=== PATIENT | male | born 1975 | race Two or more races ===

== ENCOUNTER 2022-07-29 21:51 | Inpatient (IN) | payer OTHER ==
[~2022-07-29] VITALS: Ht 172.7 cm; Wt 64.6 kg
[2022-07-29 22:40] LABS: MEAN CORPUSCULAR HEMOGLOBIN 26.2 uug (23.8-33.4); MEAN CORPUSCULAR VOLUME 82.6 fL (73.0-96.2); PLATELET COUNT (AUTO) 220 K/uL (152-348)
[2022-07-29 22:51] LABS: ALANINE AMINOTRANSFERASE 23 U/L (16-63); ALKALINE PHOSPHATASE 390 U/L (50-136); ASPARTATE AMINOTRANSFERASE 37 U/L (15-37); BILIRUBIN,DIRECT 0.1 mg/dL (0.0-0.2); BILIRUBIN,TOTAL 0.2 mg/dL (0.2-1.0); CARBON DIOXIDE 29 mmol/L (21-32); CHLORIDE 96 mmol/L (98-107); CREATININE 4.6 mg/dL (0.6-1.3); GLUCOSE 146 mg/dL (74-106); POTASSIUM 4.5 mmol/L (3.5-5.1); TOTAL PROTEIN, SERUM 5.9 g/dL (6.4-8.2); UREA NITROGEN, BLOOD 42 mg/dL (7-18)
[2022-07-29] MEDS ORDERED: AMLO-212 PO (23:14)
[2022-07-29] MEDS ORDERED: CALC667C6 PO (23:15)
[2022-07-29] MEDS ORDERED: CLON0.1T PO (23:16)
[2022-07-29] MEDS ORDERED: FERR-68 PO (23:17)
[2022-07-29] MEDS ORDERED: HYDR-4209 PO (23:23)
[2022-07-29] MEDS ORDERED: LEVO25TA9 PO (23:23)
[2022-07-29] MEDS ORDERED: INSU100V39 SQ (23:25)
[2022-07-30] MEDS ORDERED: ONDANSETRON 4 MG/2 ML VIAL IV PRN (01:15)
[2022-07-30] MEDS ORDERED: REMEDY ESSENTIAL ZINC PASTE 113 GM TP PRN (01:15)
[2022-07-30] MEDS ORDERED: levETIRAcetam IV 500 MG in IV DEXTROSE 5% 100 ML IV ONE (01:15)
[2022-07-30] MEDS ORDERED: ONDANSETRON ODT 4 MG TAB.RAPDIS SL ONE (02:15)
[2022-07-30] MEDS ORDERED: levETIRAcetam 500 MG/5 ML VIAL IV ONE (03:22)
[2022-07-30 04:02] LABS: BASOPHILS % (MANUAL) 0 % (0-2); EOSINOPHILS % (MANUAL) 5 % (0-8); LYMPHOCYTES % (MANUAL) 10 % (20-40); MONOCYTES % (MANUAL) 6 % (2-10); NEUTROPHILS % (MANUAL) 79 % (42-75)
[2022-07-30 06:02] LABS: BILIRUBIN,TOTAL 0.4 mg/dL (0.2-1.0); CREATININE 4.8 mg/dL (0.6-1.3); MAGNESIUM 1.5 mg/dL (1.8-2.4); PHOSPHOROUS 4.5 mg/dL (2.5-4.9); POTASSIUM 4.6 mmol/L (3.5-5.1); TOTAL PROTEIN, SERUM 5.6 g/dL (6.4-8.2)
[2022-07-30 06:14] LABS: MEAN CORPUSCULAR HEMOGLOBIN 27.7 uug (23.8-33.4); MEAN CORPUSCULAR VOLUME 85.1 fL (73.0-96.2); PLATELET COUNT (AUTO) 208 K/uL (152-348)
[2022-07-30 06:51] LABS: HEMATOCRIT 19.9 % (36.7-47.1)
[2022-07-30] MEDS: PANTOPRAZOLE SODIUM 40 MG TABLET.DR PO SCH (07:59)
[2022-07-30] MEDS ORDERED: levETIRAcetam 250 MG TABLET ONE (08:01)
[2022-07-30] MEDS ORDERED: PANTOPRAZOLE SODIUM 40 MG TABLET.DR PO ONE (08:01)
[2022-07-30] MEDS: levETIRAcetam 500 MG TABLET PO SCH ×2 (09:00→20:38)
[2022-07-30] MEDS ORDERED: levETIRAcetam 250 MG TABLET PO SCH (09:00)
[2022-07-30 09:30] VITALS: BP 119/80
[2022-07-30] MEDS: NICOTINE 21 MG/24HR PATCH TD SCH (12:17)
[2022-07-30 12:44] LABS: BAND % (MANUAL) 3 % (0-10); BASOPHILS % (MANUAL) 0 % (0-2); BLASTS, MANUAL % 0 % (0-0); EOSINOPHILS % (MANUAL) 5 % (0-8); LYMPHOCYTES % (MANUAL) 17 % (20-40); METAMYELOCYTES % 0 % (0-1); MONOCYTES % (MANUAL) 4 % (2-10); MYELOCYTES % 0 % (0-0); NEUTROPHILS % (MANUAL) 71 % (42-75); PROMYELOCYTES % 0 %; REACTIVE LYMPHOCYTES 0 % (0-0)
[2022-07-30] MEDS: ACETAMINOPHEN 325 MG TABLET PO PRN (13:45)
[2022-07-30 15:53] LABS: *OCCULT BLOOD STOOL NEGATIVE (NEGATIVE)
[2022-07-30] MEDS ORDERED: MAGNESIUM OXIDE 400 MG TABLET PO ONE (16:00)
[2022-07-30 16:01] VITALS: BP 124/85
[2022-07-30] MEDS ORDERED: CLONIDINE HCL 0.1 MG TABLET PO PRN (19:00)
[2022-07-30 20:00] VITALS: BP 128/87
[2022-07-30] MEDS: HYDROCODONE/APAP 5-325MG TABLET PO PRN (20:48)
[2022-07-31] VITALS (11 sets, daily range): BP systolic 137–151; BP diastolic 96–100
[2022-07-31] MEDS: PANTOPRAZOLE SODIUM 40 MG TABLET.DR PO SCH ×2 (06:04→08:28)
[2022-07-31] MEDS: LEVOTHYROXINE SODIUM 25 MCG TABLET PO SCH ×2 (06:04→08:27)
[2022-07-31 07:59] LABS: HEMATOCRIT 21.2 % (36.7-47.1); PLATELET COUNT (AUTO) 217 K/uL (152-348)
[2022-07-31 08:23] LABS: BILIRUBIN,TOTAL 0.3 mg/dL (0.2-1.0); CREATININE 5.6 mg/dL (0.6-1.3); MAGNESIUM 1.4 mg/dL (1.8-2.4); PHOSPHOROUS 4.2 mg/dL (2.5-4.9); POTASSIUM 6.1 mmol/L (3.5-5.1); TOTAL PROTEIN, SERUM 5.7 g/dL (6.4-8.2)
[2022-07-31] MEDS: CALCIUM ACETATE 667 MG CAP/TAB PO SCH ×3 (08:24→17:51)
[2022-07-31] MEDS: FERROUS SULFATE 325 MG TABEC PO SCH ×2 (08:25→17:51)
[2022-07-31] MEDS: levETIRAcetam 500 MG TABLET PO SCH ×2 (08:25→20:34)
[2022-07-31] MEDS: NICOTINE 21 MG/24HR PATCH TD SCH (08:25)
[2022-07-31] MEDS ORDERED: MAGNESIUM SULFATE/D5W 100 ML IV SCH (12:30)
[2022-08-01] VITALS: BP 139/97
[2022-08-01 04:00] VITALS: BP 140/98
[2022-08-01 06:41] LABS: HEMATOCRIT 24.9 % (36.7-47.1); MEAN CORPUSCULAR HEMOGLOBIN 26.6 uug (23.8-33.4); MEAN CORPUSCULAR VOLUME 82.2 fL (73.0-96.2); PLATELET COUNT (AUTO) 166 K/uL (152-348)
[2022-08-01 07:23] LABS: BILIRUBIN,TOTAL 0.4 mg/dL (0.2-1.0); CREATININE 6.4 mg/dL (0.6-1.3); MAGNESIUM 1.7 mg/dL (1.8-2.4); PHOSPHOROUS 5.4 mg/dL (2.5-4.9); TOTAL PROTEIN, SERUM 5.9 g/dL (6.4-8.2)
[2022-08-01] MEDS: FERROUS SULFATE 325 MG TABEC PO SCH ×2 (08:17→17:02)
[2022-08-01] MEDS: CALCIUM ACETATE 667 MG CAP/TAB PO SCH ×3 (08:17→17:03)
[2022-08-01] MEDS: NICOTINE 21 MG/24HR PATCH TD SCH (08:17)
[2022-08-01] MEDS: levETIRAcetam 500 MG TABLET PO SCH ×2 (08:17→21:22)
[2022-08-01 08:54] LABS: POTASSIUM 6.3 mmol/L (3.5-5.1)
[2022-08-01] MEDS ORDERED: SODIUM POLYSTYRENE SULFONATE 15 G/60 ML LIQUID UDC PO ONE (09:15)
[2022-08-01 11:41] VITALS: BP 143/100
[2022-08-01] MEDS ORDERED: MAGNESIUM OXIDE 400 MG TABLET PO ONE (12:00)
[2022-08-01 15:45] VITALS: BP 124/91
[2022-08-01 20:00] VITALS: BP 131/89
[2022-08-02 04:00] VITALS: BP 140/95
[2022-08-02] MEDS: LEVOTHYROXINE SODIUM 25 MCG TABLET PO SCH (06:24)
[2022-08-02] MEDS: PANTOPRAZOLE SODIUM 40 MG TABLET.DR PO SCH (06:24)
[2022-08-02] MEDS: levETIRAcetam 500 MG TABLET PO SCH ×2 (08:02→21:53)
[2022-08-02] MEDS: NICOTINE 21 MG/24HR PATCH TD SCH (08:02)
[2022-08-02] MEDS: CALCIUM ACETATE 667 MG CAP/TAB PO SCH ×3 (08:02→17:05)
[2022-08-02] MEDS: FERROUS SULFATE 325 MG TABEC PO SCH ×2 (08:02→16:29)
[2022-08-02] MEDS: NEPRO (VANILLA) 237 ML CAN PO SCH (09:07)
[2022-08-02 11:41] VITALS: BP 127/92
[2022-08-02 12:07] LABS: HEPATITIS B SURFACE AG Negative (Negative)
[2022-08-02 16:00] VITALS: BP 114/78
[2022-08-02 20:39] VITALS: BP 130/87
[2022-08-02] MEDS: HYDROCODONE/APAP 5-325MG TABLET PO PRN (21:54)
[2022-08-02] MEDS: MEDIHONEY= THERAHONEY 1.5 OZ TUBE TOP SCH (21:56)
[2022-08-03 03:52] VITALS: BP 138/100
[2022-08-03] MEDS: PANTOPRAZOLE SODIUM 40 MG TABLET.DR PO SCH (06:33)
[2022-08-03] MEDS: LEVOTHYROXINE SODIUM 25 MCG TABLET PO SCH (06:33)
[2022-08-03 07:17] LABS: CREATININE 5.5 mg/dL (0.6-1.3); POTASSIUM 5.9 mmol/L (3.5-5.1)
[2022-08-03 08:56] LABS: HEMATOCRIT 22.6 % (36.7-47.1); MEAN CORPUSCULAR HEMOGLOBIN 26.9 uug (23.8-33.4); MEAN CORPUSCULAR VOLUME 82.8 fL (73.0-96.2); PLATELET COUNT (AUTO) 183 K/uL (152-348)
[2022-08-03] MEDS: NEPRO (VANILLA) 237 ML CAN PO SCH (09:00)
[2022-08-03] MEDS: MEDIHONEY= THERAHONEY 1.5 OZ TUBE TOP SCH ×2 (09:00→23:36)
[2022-08-03] MEDS: NICOTINE 21 MG/24HR PATCH TD SCH (10:06)
[2022-08-03] MEDS: levETIRAcetam 500 MG TABLET PO SCH ×2 (10:06→21:21)
[2022-08-03] MEDS: FERROUS SULFATE 325 MG TABEC PO SCH ×2 (10:06→16:45)
[2022-08-03 11:45] VITALS: BP 132/87
[2022-08-03] MEDS: CALCIUM ACETATE 667 MG CAP/TAB PO SCH ×2 (12:31→16:45)
[2022-08-03] MEDS ORDERED: LEVE500T9 PO (13:59)
[2022-08-03 16:04] VITALS: BP 130/88
[2022-08-03 21:00] VITALS: BP 130/88
[2022-08-04] MEDS: HYDROCODONE/APAP 5-325MG TABLET PO PRN ×2 (05:19→15:25)
[2022-08-04] MEDS: LEVOTHYROXINE SODIUM 25 MCG TABLET PO SCH (06:02)
[2022-08-04] MEDS: PANTOPRAZOLE SODIUM 40 MG TABLET.DR PO SCH (06:02)
[2022-08-04 06:14] VITALS: BP 139/96
[2022-08-04 07:16] LABS: CREATININE 4.5 mg/dL (0.6-1.3); POTASSIUM 5.2 mmol/L (3.5-5.1)
[2022-08-04 08:35] LABS: HEMATOCRIT 22.5 % (36.7-47.1); MEAN CORPUSCULAR HEMOGLOBIN 26.4 uug (23.8-33.4); MEAN CORPUSCULAR VOLUME 82.6 fL (73.0-96.2); PLATELET COUNT (AUTO) 176 K/uL (152-348)
[2022-08-04] MEDS: MEDIHONEY= THERAHONEY 1.5 OZ TUBE TOP SCH ×2 (08:51→21:01)
[2022-08-04] MEDS: FERROUS SULFATE 325 MG TABEC PO SCH ×2 (08:51→18:30)
[2022-08-04] MEDS: levETIRAcetam 500 MG TABLET PO SCH ×2 (08:51→20:59)
[2022-08-04] MEDS: NICOTINE 21 MG/24HR PATCH TD SCH (08:51)
[2022-08-04] MEDS: ACETAMINOPHEN 325 MG TABLET PO PRN (08:51)
[2022-08-04] MEDS: CALCIUM ACETATE 667 MG CAP/TAB PO SCH ×3 (08:55→18:30)
[2022-08-04] MEDS: NEPRO (VANILLA) 237 ML CAN PO SCH (09:00)
[2022-08-04 11:35] VITALS: BP 129/89
[2022-08-04 11:40] VITALS: BP 134/67
[2022-08-04 15:15] VITALS: BP_SYST 117; BP_SYST 129; BP_DIAS 51; BP_DIAS 93
[2022-08-04] MEDS: LORAZEPAM 2 MG/1 ML VIAL IV PRN (21:00)
[2022-08-05 00:03] VITALS: BP 142/100
[2022-08-05 00:16] VITALS: BP 140/100
[2022-08-05 05:14] VITALS: BP 142/101
[2022-08-05] MEDS: PANTOPRAZOLE SODIUM 40 MG TABLET.DR PO SCH (05:46)
[2022-08-05] MEDS: LEVOTHYROXINE SODIUM 25 MCG TABLET PO SCH (05:47)
[2022-08-05 06:47] LABS: CREATININE 5.5 mg/dL (0.6-1.3); POTASSIUM 5.4 mmol/L (3.5-5.1)
[2022-08-05] MEDS: FERROUS SULFATE 325 MG TABEC PO SCH ×2 (08:32→18:29)
[2022-08-05] MEDS: levETIRAcetam 500 MG TABLET PO SCH ×2 (08:32→21:08)
[2022-08-05] MEDS: NICOTINE 21 MG/24HR PATCH TD SCH (08:32)
[2022-08-05] MEDS: MEDIHONEY= THERAHONEY 1.5 OZ TUBE TOP SCH ×2 (09:07→21:08)
[2022-08-05] MEDS: NEPRO (VANILLA) 237 ML CAN PO SCH (09:07)
[2022-08-05] MEDS: CALCIUM ACETATE 667 MG CAP/TAB PO SCH ×3 (09:19→18:29)
[2022-08-05 11:03] VITALS: BP 139/96
[2022-08-05] MEDS: HYDROCODONE/APAP 5-325MG TABLET PO PRN (14:30)
[2022-08-05 15:10] VITALS: BP 143/97
[2022-08-06] MEDS: PANTOPRAZOLE SODIUM 40 MG TABLET.DR PO SCH (05:58)
[2022-08-06] MEDS: LEVOTHYROXINE SODIUM 25 MCG TABLET PO SCH (05:59)
[2022-08-06 07:24] VITALS: BP 156/102
[2022-08-06] MEDS: HYDROCODONE/APAP 5-325MG TABLET PO PRN ×2 (09:36→17:11)
[2022-08-06] MEDS: levETIRAcetam 500 MG TABLET PO SCH ×2 (09:36→20:44)
[2022-08-06] MEDS: FERROUS SULFATE 325 MG TABEC PO SCH ×2 (09:36→17:11)
[2022-08-06] MEDS: CALCIUM ACETATE 667 MG CAP/TAB PO SCH ×3 (09:36→17:11)
[2022-08-06] MEDS: NICOTINE 21 MG/24HR PATCH TD SCH (09:37)
[2022-08-06] MEDS: MEDIHONEY= THERAHONEY 1.5 OZ TUBE TOP SCH ×2 (09:37→21:45)
[2022-08-06] MEDS: NEPRO (VANILLA) 237 ML CAN PO SCH (09:37)
[2022-08-06 15:36] LABS: CREATININE 4.5 mg/dL (0.6-1.3); POTASSIUM 5.3 mmol/L (3.5-5.1)
[2022-08-06 20:00] VITALS: BP 108/70
[2022-08-07] MEDS: LEVOTHYROXINE SODIUM 25 MCG TABLET PO SCH (06:08)
[2022-08-07] MEDS: PANTOPRAZOLE SODIUM 40 MG TABLET.DR PO SCH (06:08)
[2022-08-07 06:35] VITALS: BP 112/72
[2022-08-07 07:49] VITALS: BP 122/48
[2022-08-07] MEDS: CALCIUM ACETATE 667 MG CAP/TAB PO SCH ×3 (08:16→13:16)
[2022-08-07] MEDS: levETIRAcetam 500 MG TABLET PO SCH ×2 (08:16→21:08)
[2022-08-07] MEDS: HYDROCODONE/APAP 5-325MG TABLET PO PRN ×2 (08:16→16:46)
[2022-08-07] MEDS: FERROUS SULFATE 325 MG TABEC PO SCH ×2 (08:16→16:26)
[2022-08-07] MEDS: MEDIHONEY= THERAHONEY 1.5 OZ TUBE TOP SCH ×2 (08:17→21:09)
[2022-08-07] MEDS: NICOTINE 21 MG/24HR PATCH TD SCH (08:17)
[2022-08-07] MEDS: NEPRO (VANILLA) 237 ML CAN PO SCH (08:17)
[2022-08-07 15:45] VITALS: BP 112/76
[2022-08-07 20:58] VITALS: BP 119/75
[2022-08-08 04:24] VITALS: BP 135/84
[2022-08-08] MEDS: PANTOPRAZOLE SODIUM 40 MG TABLET.DR PO SCH (06:37)
[2022-08-08] MEDS: LEVOTHYROXINE SODIUM 25 MCG TABLET PO SCH (06:37)
[2022-08-08 06:41] LABS: HEMATOCRIT 21.1 % (36.7-47.1); MEAN CORPUSCULAR HEMOGLOBIN 26.4 uug (23.8-33.4); MEAN CORPUSCULAR VOLUME 80.8 fL (73.0-96.2); PLATELET COUNT (AUTO) 216 K/uL (152-348)
[2022-08-08 07:15] LABS: CREATININE 6.4 mg/dL (0.6-1.3)
[2022-08-08 07:25] LABS: POTASSIUM 6.3 mmol/L (3.5-5.1)
[2022-08-08] MEDS ORDERED: SODIUM POLYSTYRENE SULFONATE 15 G/60 ML LIQUID UDC PO ONE (08:15)
[2022-08-08] MEDS: NEPRO (VANILLA) 237 ML CAN PO SCH (09:00)
[2022-08-08] MEDS: CALCIUM ACETATE 667 MG CAP/TAB PO SCH ×3 (10:15→18:00)
[2022-08-08] MEDS: NICOTINE 21 MG/24HR PATCH TD SCH (10:16)
[2022-08-08] MEDS: FERROUS SULFATE 325 MG TABEC PO SCH ×2 (10:16→17:00)
[2022-08-08] MEDS: levETIRAcetam 500 MG TABLET PO SCH ×2 (10:16→20:34)
[2022-08-08] MEDS: MEDIHONEY= THERAHONEY 1.5 OZ TUBE TOP SCH ×2 (10:22→20:34)
[2022-08-08 10:40] LABS: BAND % (MANUAL) 1 % (0-10); EOSINOPHILS % (MANUAL) 2 % (0-8); LYMPHOCYTES % (MANUAL) 4 % (20-40); MONOCYTES % (MANUAL) 2 % (2-10); NEUTROPHILS % (MANUAL) 91 % (42-75)
[2022-08-08] MEDS: HYDROCODONE/APAP 5-325MG TABLET PO PRN (10:42)
[2022-08-08 11:00] VITALS: BP 131/87
[2022-08-08 15:06] VITALS: BP 120/74
[2022-08-08] MEDS: ACETAMINOPHEN 325 MG TABLET PO PRN (15:32)
[2022-08-08 18:04] VITALS: BP 114/65
[2022-08-08 18:20] VITALS: BP 112/73
[2022-08-08 20:30] VITALS: BP 100/64
[2022-08-09 04:00] VITALS: BP 142/92
[2022-08-09] MEDS: LEVOTHYROXINE SODIUM 25 MCG TABLET PO SCH (06:03)
[2022-08-09] MEDS: PANTOPRAZOLE SODIUM 40 MG TABLET.DR PO SCH (06:04)
[2022-08-09] MEDS: CALCIUM ACETATE 667 MG CAP/TAB PO SCH ×3 (08:35→17:32)
[2022-08-09] MEDS: NICOTINE 21 MG/24HR PATCH TD SCH (08:36)
[2022-08-09] MEDS: NEPRO (VANILLA) 237 ML CAN PO SCH (08:36)
[2022-08-09] MEDS: FERROUS SULFATE 325 MG TABEC PO SCH ×2 (08:36→17:32)
[2022-08-09] MEDS: levETIRAcetam 500 MG TABLET PO SCH ×2 (08:36→20:45)
[2022-08-09] MEDS: MEDIHONEY= THERAHONEY 1.5 OZ TUBE TOP SCH ×2 (08:36→20:46)
[2022-08-09] MEDS: HYDROCODONE/APAP 5-325MG TABLET PO PRN (08:58)
[2022-08-09 10:49] LABS: MEAN CORPUSCULAR HEMOGLOBIN 26.2 uug (23.8-33.4); MEAN CORPUSCULAR VOLUME 81.1 fL (73.0-96.2); PLATELET COUNT (AUTO) 182 K/uL (152-348)
[2022-08-09 11:23] LABS: CREATININE 4.9 mg/dL (0.6-1.3); POTASSIUM 4.5 mmol/L (3.5-5.1)
[2022-08-09 11:30] LABS: HEMATOCRIT 19.2 % (36.7-47.1)
[2022-08-09] MEDS: ACETAMINOPHEN 325 MG TABLET PO PRN (11:34)
[2022-08-09 11:57] LABS: EOSINOPHILS % (MANUAL) 1 % (0-8); LYMPHOCYTES % (MANUAL) 2 % (20-40); MONOCYTES % (MANUAL) 3 % (2-10); NEUTROPHILS % (MANUAL) 94 % (42-75)
[2022-08-09] MEDS ORDERED: DOSING BY PHARMACY-MD TO SPECIFY MED/ROUTE XX PRN (12:30)
[2022-08-09] MEDS ORDERED: VANCOMYCIN IV 1,000 MG in IV DEXTROSE 5% 250 ML IV ONE (13:00)
[2022-08-09] MEDS ORDERED: levoFLOXacin 500 MG/D5W 500 MG in PREMIXED 1 EACH IV ONE (15:00)
[2022-08-09 15:06] VITALS: BP 118/75
[2022-08-09] MEDS ORDERED: CEFEPIME HCL 1 G in IV DEXTROSE 5% 50 ML IV SCH (21:00)
[2022-08-09 21:46] VITALS: BP 117/87
[2022-08-10] VITALS (11 sets, daily range): BP systolic 113–147; BP diastolic 78–99
[2022-08-10] MEDS ORDERED: diphenhydrAMINE 50 MG CAPSULE PO PRN (02:00)
[2022-08-10] MEDS: HYDROCODONE/APAP 5-325MG TABLET PO PRN (02:44)
[2022-08-10] MEDS: PANTOPRAZOLE SODIUM 40 MG TABLET.DR PO SCH (06:12)
[2022-08-10] MEDS: LEVOTHYROXINE SODIUM 25 MCG TABLET PO SCH (06:12)
[2022-08-10 07:27] LABS: HEMATOCRIT 23.3 % (36.7-47.1); MEAN CORPUSCULAR HEMOGLOBIN 26.5 uug (23.8-33.4); MEAN CORPUSCULAR VOLUME 81.7 fL (73.0-96.2); PLATELET COUNT (AUTO) 184 K/uL (152-348)
[2022-08-10 07:47] LABS: CREATININE 5.5 mg/dL (0.6-1.3); MAGNESIUM 1.6 mg/dL (1.8-2.4); PHOSPHOROUS 5.5 mg/dL (2.5-4.9); POTASSIUM 4.6 mmol/L (3.5-5.1)
[2022-08-10] MEDS ORDERED: VANCOMYCIN IV 500 MG in IV DEXTROSE 5% 100 ML IV PRN ×2 (08:00→18:30)
[2022-08-10] MEDS: NICOTINE 21 MG/24HR PATCH TD SCH (09:14)
[2022-08-10] MEDS: FERROUS SULFATE 325 MG TABEC PO SCH ×2 (09:14→17:31)
[2022-08-10] MEDS: levETIRAcetam 500 MG TABLET PO SCH ×2 (09:14→21:02)
[2022-08-10] MEDS: CALCIUM ACETATE 667 MG CAP/TAB PO SCH ×3 (09:15→17:31)
[2022-08-10] MEDS: NEPRO (VANILLA) 237 ML CAN PO SCH (09:15)
[2022-08-10] MEDS: MEDIHONEY= THERAHONEY 1.5 OZ TUBE TOP SCH ×2 (09:16→21:02)
[2022-08-10] MEDS ORDERED: MAGNESIUM OXIDE 400 MG TABLET PO ONE (11:45)
[2022-08-11 04:00] VITALS: BP 118/75
[2022-08-11] MEDS: LEVOTHYROXINE SODIUM 25 MCG TABLET PO SCH (06:08)
[2022-08-11] MEDS: PANTOPRAZOLE SODIUM 40 MG TABLET.DR PO SCH (06:08)
[2022-08-11 07:14] LABS: HEMATOCRIT 22.2 % (36.7-47.1); MEAN CORPUSCULAR HEMOGLOBIN 27.3 uug (23.8-33.4); MEAN CORPUSCULAR VOLUME 82.7 fL (73.0-96.2); PLATELET COUNT (AUTO) 177 K/uL (152-348)
[2022-08-11 07:31] LABS: CREATININE 4.2 mg/dL (0.6-1.3); MAGNESIUM 1.9 mg/dL (1.8-2.4); PHOSPHOROUS 3.3 mg/dL (2.5-4.9); POTASSIUM 3.9 mmol/L (3.5-5.1)
[2022-08-11 08:48] VITALS: BP 138/88
[2022-08-11] MEDS ORDERED: VANCOMYCIN IV 750 MG in IV DEXTROSE 5% 250 ML IV ONE (09:00)
[2022-08-11 09:16] LABS: *BILIRUBIN,URIN NEGATIVE (NEGATIVE); *CLARITY,URINE CLEAR (CLEAR); *COLOR,URINE YELLOW (YELLOW); *KETONES,URINE NEGATIVE (NEGATIVE); *UROBILINOGEN,URINE 0.2 E.U./dl (NORMAL); LEUKOCYTE ESTERASE ,URINE NEGATIVE (NEGATIVE); NITRITE, URINE NEGATIVE (NEGATIVE); PH,URINE 7.5 (5.0-8.0)
[2022-08-11] MEDS: NICOTINE 21 MG/24HR PATCH TD SCH (09:29)
[2022-08-11] MEDS: FERROUS SULFATE 325 MG TABEC PO SCH ×2 (09:30→17:42)
[2022-08-11] MEDS: CALCIUM ACETATE 667 MG CAP/TAB PO SCH ×3 (09:30→17:42)
[2022-08-11] MEDS: levETIRAcetam 500 MG TABLET PO SCH ×2 (09:30→20:29)
[2022-08-11 09:47] LABS: UGLUCOSE 1+ (NEGATIVE)
[2022-08-11 09:48] LABS: *BLOOD, URINE TRACE (NEGATIVE)
[2022-08-11] MEDS: MEDIHONEY= THERAHONEY 1.5 OZ TUBE TOP SCH ×2 (09:53→20:29)
[2022-08-11] MEDS: NEPRO (VANILLA) 237 ML CAN PO SCH (09:54)
[2022-08-11 09:56] LABS: RBC,URINE 0-3 /HPF (0-3); WBC,URINE NONE SEEN /HPF (0-3)
[2022-08-11 09:57] LABS: BACTERIA,URINE NONE SEEN /HPF (NONE SEEN); CALCIUM CARBONATE CRYSTALS,UR NONE SEEN /HPF (NONE SEEN); CALCIUM OXALATE CRYSTALS,UR NONE SEEN /HPF (NONE SEEN); CALCIUM PHOSPHATE CRYSTALS,UR NONE SEEN /HPF (NONE SEEN); COARSE GRANULAR CASTS,URINE NONE SEEN /LPF; CYSTINE CRYSTALS,URINE NONE SEEN /HPF (NONE SEEN); FATTY CASTS,URINE NONE SEEN /LPF (NONE SEEN); MUCUS,URINE NONE SEEN /LPF (0-FEW); RED BLOOD CELL CASTS,URINE NONE SEEN /LPF (NONE SEEN); SPERM,URINE NONE SEEN /HPF (NONE SEEN); SQUAMOUS EPITHELIAL CELL,UR NONE SEEN /HPF (NONE SEEN); TRICHOMONAS,URINE NONE SEEN /HPF (NONE SEEN); TRIPLE PHOSPHATE CRYSTAL,UR NONE SEEN /HPF (NONE SEEN); TYROSINE CRYSTAL,URINE NONE SEEN /HPF (NONE SEEN); URIC ACID CRYSTALS,URINE NONE SEEN /HPF (NONE SEEN); URINE AMORPHOUS PHOSPHATES NONE SEEN /HPF; URINE AMORPHOUS URATE NONE SEEN /HPF; WAXY CASTS,URINE NONE SEEN /LPF (NONE SEEN); YEAST,URINE NONE SEEN /HPF (NONE SEEN)
[2022-08-11] MEDS ORDERED: LIDOCAINE 1%-EPI 1:100,000 20 ML VIAL IJ PRN (11:15)
[2022-08-11] MEDS: HYDROCODONE/APAP 5-325MG TABLET PO PRN (17:42)
[2022-08-11 20:00] VITALS: BP 134/95
[2022-08-11] MEDS ORDERED: LEVOFLOXACIN/D5W 250 MG in PREMIX 1 EA IV SCH (21:00)
[2022-08-12 04:00] VITALS: BP 131/96
[2022-08-12] MEDS: LEVOTHYROXINE SODIUM 25 MCG TABLET PO SCH (06:03)
[2022-08-12] MEDS: PANTOPRAZOLE SODIUM 40 MG TABLET.DR PO SCH (06:03)
[2022-08-12 07:26] LABS: HEMATOCRIT 23.5 % (36.7-47.1); MEAN CORPUSCULAR HEMOGLOBIN 26.8 uug (23.8-33.4); MEAN CORPUSCULAR VOLUME 81.7 fL (73.0-96.2); PLATELET COUNT (AUTO) 168 K/uL (152-348)
[2022-08-12 08:05] LABS: MAGNESIUM 1.9 mg/dL (1.8-2.4); PHOSPHOROUS 2.9 mg/dL (2.5-4.9)
[2022-08-12] MEDS: CALCIUM ACETATE 667 MG CAP/TAB PO SCH ×3 (08:12→17:14)
[2022-08-12] MEDS: NICOTINE 21 MG/24HR PATCH TD SCH (09:12)
[2022-08-12] MEDS: levETIRAcetam 500 MG TABLET PO SCH ×2 (09:12→20:40)
[2022-08-12] MEDS: FERROUS SULFATE 325 MG TABEC PO SCH ×2 (09:14→16:56)
[2022-08-12] MEDS: NEPRO (VANILLA) 237 ML CAN PO SCH (09:14)
[2022-08-12] MEDS: MEDIHONEY= THERAHONEY 1.5 OZ TUBE TOP SCH ×2 (09:15→20:41)
[2022-08-12 12:16] VITALS: BP 137/100
[2022-08-12 16:16] VITALS: BP 130/95
[2022-08-12 20:57] VITALS: BP 136/97
[2022-08-13 04:15] VITALS: BP 135/96
[2022-08-13] MEDS: HYDROCODONE/APAP 5-325MG TABLET PO PRN ×2 (04:32→21:11)
[2022-08-13] MEDS: PANTOPRAZOLE SODIUM 40 MG TABLET.DR PO SCH (06:04)
[2022-08-13] MEDS: LEVOTHYROXINE SODIUM 25 MCG TABLET PO SCH (06:04)
[2022-08-13 06:28] LABS: MEAN CORPUSCULAR VOLUME 81.3 fL (73.0-96.2); PLATELET COUNT (AUTO) 160 K/uL (152-348)
[2022-08-13 06:41] LABS: CREATININE 5.6 mg/dL (0.6-1.3); MAGNESIUM 1.8 mg/dL (1.8-2.4); PHOSPHOROUS 3.1 mg/dL (2.5-4.9); POTASSIUM 4.6 mmol/L (3.5-5.1)
[2022-08-13] MEDS: NICOTINE 21 MG/24HR PATCH TD SCH (09:41)
[2022-08-13] MEDS: NEPRO (VANILLA) 237 ML CAN PO SCH (09:41)
[2022-08-13] MEDS: FERROUS SULFATE 325 MG TABEC PO SCH ×2 (09:41→17:53)
[2022-08-13] MEDS: levETIRAcetam 500 MG TABLET PO SCH ×2 (09:41→21:06)
[2022-08-13] MEDS: MEDIHONEY= THERAHONEY 1.5 OZ TUBE TOP SCH ×2 (09:42→21:07)
[2022-08-13] MEDS: CALCIUM ACETATE 667 MG CAP/TAB PO SCH ×3 (09:44→17:53)
[2022-08-13 20:22] VITALS: BP 138/98
[2022-08-14 04:14] VITALS: BP 134/102
[2022-08-14] MEDS: LEVOTHYROXINE SODIUM 25 MCG TABLET PO SCH (06:12)
[2022-08-14] MEDS: PANTOPRAZOLE SODIUM 40 MG TABLET.DR PO SCH (06:12)
[2022-08-14 06:33] LABS: HEMATOCRIT 23.8 % (36.7-47.1); MEAN CORPUSCULAR HEMOGLOBIN 26.7 uug (23.8-33.4); MEAN CORPUSCULAR VOLUME 81.6 fL (73.0-96.2); PLATELET COUNT (AUTO) 179 K/uL (152-348)
[2022-08-14 06:55] LABS: CREATININE 6.3 mg/dL (0.6-1.3); PHOSPHOROUS 3.2 mg/dL (2.5-4.9)
[2022-08-14] MEDS: FERROUS SULFATE 325 MG TABEC PO SCH ×2 (08:12→17:01)
[2022-08-14] MEDS: CALCIUM ACETATE 667 MG CAP/TAB PO SCH ×3 (08:13→18:17)
[2022-08-14] MEDS: levETIRAcetam 500 MG TABLET PO SCH ×2 (08:13→21:00)
[2022-08-14] MEDS: NEPRO (VANILLA) 237 ML CAN PO SCH (08:13)
[2022-08-14] MEDS: NICOTINE 21 MG/24HR PATCH TD SCH (08:13)
[2022-08-14] MEDS: MEDIHONEY= THERAHONEY 1.5 OZ TUBE TOP SCH ×2 (08:16→21:10)
[2022-08-14 11:36] VITALS: BP 137/95
[2022-08-14 16:02] VITALS: BP 137/90
[2022-08-14 20:28] VITALS: BP 140/107
[2022-08-14] MEDS ORDERED: VANCOMYCIN IV 750 MG in IV DEXTROSE 5% 250 ML IV ONE (22:00)
[2022-08-15 04:29] VITALS: BP 140/94
[2022-08-15 05:54] LABS: HEMATOCRIT 22.3 % (36.7-47.1); MEAN CORPUSCULAR HEMOGLOBIN 26.9 uug (23.8-33.4); MEAN CORPUSCULAR VOLUME 81.1 fL (73.0-96.2); PLATELET COUNT (AUTO) 178 K/uL (152-348)
[2022-08-15] MEDS: PANTOPRAZOLE SODIUM 40 MG TABLET.DR PO SCH (06:10)
[2022-08-15] MEDS: LEVOTHYROXINE SODIUM 25 MCG TABLET PO SCH (06:10)
[2022-08-15 07:24] LABS: CREATININE 3.9 mg/dL (0.6-1.3); MAGNESIUM 1.8 mg/dL (1.8-2.4); PHOSPHOROUS 2.4 mg/dL (2.5-4.9); POTASSIUM 3.8 mmol/L (3.5-5.1)
[2022-08-15] MEDS: NICOTINE 21 MG/24HR PATCH TD SCH (08:44)
[2022-08-15] MEDS: CALCIUM ACETATE 667 MG CAP/TAB PO SCH ×3 (08:44→17:06)
[2022-08-15] MEDS: levETIRAcetam 500 MG TABLET PO SCH ×2 (08:44→20:17)
[2022-08-15] MEDS: FERROUS SULFATE 325 MG TABEC PO SCH ×2 (08:44→17:05)
[2022-08-15] MEDS: NEPRO (VANILLA) 237 ML CAN PO SCH (08:47)
[2022-08-15] MEDS: MEDIHONEY= THERAHONEY 1.5 OZ TUBE TOP SCH ×2 (08:48→20:17)
[2022-08-15 11:42] VITALS: BP 133/99
[2022-08-15 15:27] VITALS: BP 146/105
[2022-08-15] MEDS: HYDROCODONE/APAP 5-325MG TABLET PO PRN (17:06)
[2022-08-15 20:07] VITALS: BP 144/107
[2022-08-16] VITALS (7 sets, daily range): BP systolic 105–160; BP diastolic 46–110
[2022-08-16] MEDS: PANTOPRAZOLE SODIUM 40 MG TABLET.DR PO SCH (06:04)
[2022-08-16] MEDS: LEVOTHYROXINE SODIUM 25 MCG TABLET PO SCH (06:04)
[2022-08-16 06:37] LABS: MEAN CORPUSCULAR HEMOGLOBIN 26.9 uug (23.8-33.4); MEAN CORPUSCULAR VOLUME 81.8 fL (73.0-96.2); PLATELET COUNT (AUTO) 189 K/uL (152-348)
[2022-08-16 06:39] LABS: CREATININE 5.5 mg/dL (0.6-1.3); MAGNESIUM 1.8 mg/dL (1.8-2.4); PHOSPHOROUS 3.2 mg/dL (2.5-4.9); POTASSIUM 5.5 mmol/L (3.5-5.1)
[2022-08-16] MEDS: NICOTINE 21 MG/24HR PATCH TD SCH (09:02)
[2022-08-16] MEDS: FERROUS SULFATE 325 MG TABEC PO SCH ×2 (09:02→16:16)
[2022-08-16] MEDS: CALCIUM ACETATE 667 MG CAP/TAB PO SCH ×3 (09:02→17:42)
[2022-08-16] MEDS: levETIRAcetam 500 MG TABLET PO SCH ×2 (09:02→20:12)
[2022-08-16] MEDS: NEPRO (VANILLA) 237 ML CAN PO SCH (09:29)
[2022-08-16] MEDS: MEDIHONEY= THERAHONEY 1.5 OZ TUBE TOP SCH ×2 (09:29→20:12)
[2022-08-16 21:16] LABS: HEMATOCRIT 28.3 % (36.7-47.1)
[2022-08-17 04:00] VITALS: BP 147/107
[2022-08-17] MEDS: PANTOPRAZOLE SODIUM 40 MG TABLET.DR PO SCH (06:15)
[2022-08-17] MEDS: LEVOTHYROXINE SODIUM 25 MCG TABLET PO SCH (06:15)
[2022-08-17 06:31] LABS: HEMATOCRIT 24.3 % (36.7-47.1); MEAN CORPUSCULAR HEMOGLOBIN 27.2 uug (23.8-33.4); MEAN CORPUSCULAR VOLUME 82.4 fL (73.0-96.2); PLATELET COUNT (AUTO) 167 K/uL (152-348)
[2022-08-17 06:49] LABS: CREATININE 4.6 mg/dL (0.6-1.3); MAGNESIUM 1.9 mg/dL (1.8-2.4); PHOSPHOROUS 2.1 mg/dL (2.5-4.9); POTASSIUM 4.7 mmol/L (3.5-5.1)
[2022-08-17 08:00] VITALS: BP 132/100
[2022-08-17] MEDS: CALCIUM ACETATE 667 MG CAP/TAB PO SCH ×3 (08:00→17:08)
[2022-08-17] MEDS: levETIRAcetam 500 MG TABLET PO SCH ×2 (09:00→20:04)
[2022-08-17] MEDS: NEPRO (VANILLA) 237 ML CAN PO SCH (09:00)
[2022-08-17] MEDS: FERROUS SULFATE 325 MG TABEC PO SCH ×2 (09:00→16:27)
[2022-08-17] MEDS ORDERED: HEPARIN SODIUM,PORCINE 1,000 UNITS/ML VIAL ONE ×5 (09:02→10:00)
[2022-08-17] MEDS ORDERED: LIDOCAINE HCL 1% 20 ML VIAL ONE (09:02)
[2022-08-17] MEDS ORDERED: HEPARIN/NS 500 ML ONE (09:02)
[2022-08-17] MEDS: NICOTINE 21 MG/24HR PATCH TD SCH (09:09)
[2022-08-17] MEDS: MEDIHONEY= THERAHONEY 1.5 OZ TUBE TOP SCH ×2 (09:10→20:59)
[2022-08-17] MEDS ORDERED: FENTANYL CITRATE 100 MCG/2 ML AMPUL ONE (09:51)
[2022-08-17] MEDS ORDERED: MIDAZOLAM HCL 2 MG/2 ML VIAL ONE (09:51)
[2022-08-17] MEDS ORDERED: LIDOCAINE-MPF 2% 5 ML VIAL ONE (10:00)
[2022-08-17 16:00] VITALS: BP 157/109
[2022-08-17] MEDS ORDERED: NEUTRA PHOS PACKET PO ONE (16:00)
[2022-08-17 19:36] VITALS: BP 158/114
[2022-08-17] MEDS: HYDROCODONE/APAP 5-325MG TABLET PO PRN (20:58)
[2022-08-18 04:03] VITALS: BP 159/100
[2022-08-18] MEDS: PANTOPRAZOLE SODIUM 40 MG TABLET.DR PO SCH (06:01)
[2022-08-18] MEDS: LEVOTHYROXINE SODIUM 25 MCG TABLET PO SCH (06:01)
[2022-08-18 07:05] LABS: HEMATOCRIT 24.1 % (36.7-47.1); MEAN CORPUSCULAR HEMOGLOBIN 27.6 uug (23.8-33.4); MEAN CORPUSCULAR VOLUME 83.4 fL (73.0-96.2); PLATELET COUNT (AUTO) 159 K/uL (152-348)
[2022-08-18 07:32] LABS: CREATININE 5.4 mg/dL (0.6-1.3); MAGNESIUM 1.8 mg/dL (1.8-2.4); PHOSPHOROUS 3.1 mg/dL (2.5-4.9); POTASSIUM 5.7 mmol/L (3.5-5.1)
[2022-08-18 08:06] LABS: HEPATITIS B SURFACE AG Negative (Negative)
[2022-08-18] MEDS: NICOTINE 21 MG/24HR PATCH TD SCH (08:44)
[2022-08-18] MEDS: levETIRAcetam 500 MG TABLET PO SCH ×2 (08:44→20:01)
[2022-08-18] MEDS: CALCIUM ACETATE 667 MG CAP/TAB PO SCH ×3 (08:44→17:37)
[2022-08-18] MEDS: FERROUS SULFATE 325 MG TABEC PO SCH ×2 (08:44→17:37)
[2022-08-18] MEDS: NEPRO (VANILLA) 237 ML CAN PO SCH (08:44)
[2022-08-18] MEDS: MEDIHONEY= THERAHONEY 1.5 OZ TUBE TOP SCH ×2 (08:45→20:32)
[2022-08-18 12:00] VITALS: BP 159/101
[2022-08-18] MEDS ORDERED: VANCOMYCIN IV 750 MG in IV DEXTROSE 5% 250 ML IV ONE (14:00)
[2022-08-18] MEDS: HYDROCODONE/APAP 5-325MG TABLET PO PRN (14:34)
[2022-08-18 16:00] VITALS: BP 166/116
[2022-08-18 20:00] VITALS: BP 154/112
[2022-08-19 04:00] VITALS: BP 149/107
[2022-08-19] MEDS: PANTOPRAZOLE SODIUM 40 MG TABLET.DR PO SCH (06:02)
[2022-08-19] MEDS: LEVOTHYROXINE SODIUM 25 MCG TABLET PO SCH (06:03)
[2022-08-19 08:00] VITALS: BP 139/93
[2022-08-19] MEDS: LORAZEPAM 2 MG/1 ML VIAL IV PRN ×2 (08:06→21:17)
[2022-08-19 08:10] LABS: HEMATOCRIT 24.7 % (36.7-47.1); MEAN CORPUSCULAR HEMOGLOBIN 27.3 uug (23.8-33.4); MEAN CORPUSCULAR VOLUME 83.1 fL (73.0-96.2); PLATELET COUNT (AUTO) 151 K/uL (152-348)
[2022-08-19] MEDS: FERROUS SULFATE 325 MG TABEC PO SCH ×2 (08:23→17:07)
[2022-08-19] MEDS: CALCIUM ACETATE 667 MG CAP/TAB PO SCH ×3 (08:23→17:07)
[2022-08-19] MEDS: levETIRAcetam 500 MG TABLET PO SCH ×2 (08:23→20:34)
[2022-08-19] MEDS: NICOTINE 21 MG/24HR PATCH TD SCH (08:24)
[2022-08-19] MEDS: MEDIHONEY= THERAHONEY 1.5 OZ TUBE TOP SCH ×2 (08:24→20:36)
[2022-08-19 08:30] LABS: CREATININE 6.3 mg/dL (0.6-1.3); MAGNESIUM 1.5 mg/dL (1.8-2.4); PHOSPHOROUS 3.4 mg/dL (2.5-4.9)
[2022-08-19 08:45] LABS: POTASSIUM 6.5 mmol/L (3.5-5.1)
[2022-08-19] MEDS ORDERED: MAGNESIUM OXIDE 400 MG TABLET PO ONE (09:30)
[2022-08-19] MEDS ORDERED: SODIUM POLYSTYRENE SULFONATE 15 G/60 ML LIQUID UDC PO ONE (10:00)
[2022-08-19 11:40] VITALS: BP 144/102
[2022-08-19 15:49] VITALS: BP 144/107
[2022-08-19 20:35] VITALS: BP 143/100
[2022-08-20 04:10] VITALS: BP 150/103
[2022-08-20 06:23] LABS: HEMATOCRIT 23.5 % (36.7-47.1); MEAN CORPUSCULAR HEMOGLOBIN 26.9 uug (23.8-33.4); MEAN CORPUSCULAR VOLUME 83.3 fL (73.0-96.2); PLATELET COUNT (AUTO) 157 K/uL (152-348)
[2022-08-20] MEDS: LEVOTHYROXINE SODIUM 25 MCG TABLET PO SCH (06:27)
[2022-08-20] MEDS: PANTOPRAZOLE SODIUM 40 MG TABLET.DR PO SCH (06:27)
[2022-08-20 06:43] LABS: CREATININE 6.6 mg/dL (0.6-1.3); MAGNESIUM 1.7 mg/dL (1.8-2.4); PHOSPHOROUS 3.5 mg/dL (2.5-4.9); POTASSIUM 5.9 mmol/L (3.5-5.1)
[2022-08-20] MEDS: FERROUS SULFATE 325 MG TABEC PO SCH (08:24)
[2022-08-20] MEDS: CALCIUM ACETATE 667 MG CAP/TAB PO SCH ×2 (08:24→13:41)
[2022-08-20] MEDS: NICOTINE 21 MG/24HR PATCH TD SCH (08:24)
[2022-08-20] MEDS: levETIRAcetam 500 MG TABLET PO SCH (08:24)
[2022-08-20] MEDS: MEDIHONEY= THERAHONEY 1.5 OZ TUBE TOP SCH (09:27)
[2022-08-20] MEDS ORDERED: MAGNESIUM OXIDE 400 MG TABLET PO ONE (09:30)
[2022-08-20] MEDS: CLONAZEPAM 0.5 MG TABLET PO SCH ×2 (09:38→13:41)
[2022-08-20] MEDS ORDERED: CLON0.5T PO (09:54)
[2022-08-20 11:46] VITALS: BP 161/102
== END 2022-08-20 16:30 | DRG 53 ==
LOC: ER 21:51 → TRANSITION 07-30 02:50 → TELE3 07-30 08:50 → MEDSURG3 08-01 09:20 → MED 08-02 19:12 → MEDSURG3 08-06 17:55
PROVIDERS: ADMIT Internal Medicine; ATTEND Internal Medicine
PROC: 30233N1 Transfusion of Nonautologous Red Blood Cells into Peripheral Vein, Percutaneous Approach (ICD-10-PCS; principal; 2022-07-30)
PROC: 5A1D70Z Performance of Urinary Filtration, Intermittent, Less than 6 Hours Per Day (ICD-10-PCS; principal; 2022-07-30)
PROC: 0JBP0ZZ Excision of Left Lower Leg Subcutaneous Tissue and Fascia, Open Approach (ICD-10-PCS; 2022-08-02)
PROC: 0JBQ0ZZ Excision of Right Foot Subcutaneous Tissue and Fascia, Open Approach (ICD-10-PCS; 2022-08-02)
PROC: 02PYX3Z Removal of Infusion Device from Great Vessel, External Approach (ICD-10-PCS; 2022-08-11)
PROC: B54BZZA Ultrasonography of Right Lower Extremity Veins, Guidance (ICD-10-PCS; 2022-08-14)
PROC: 06HM33Z Insertion of Infusion Device into Right Femoral Vein, Percutaneous Approach (ICD-10-PCS; 2022-08-14)
PROC: 0JHD3XZ Insertion of Tunneled Vascular Access Device into Right Upper Arm Subcutaneous Tissue and Fascia, Percutaneous Approach (ICD-10-PCS; 2022-08-17)
PROC: 02H633Z Insertion of Infusion Device into Right Atrium, Percutaneous Approach (ICD-10-PCS; 2022-08-17)
PROC: B518ZZA Fluoroscopy of Superior Vena Cava, Guidance (ICD-10-PCS; 2022-08-17)
DX: R56.9 Unspecified convulsions (principal); A41.9 Sepsis, unspecified organism; T80.211A Bloodstream infection due to central venous catheter, initial encounter; E44.0 Moderate protein-calorie malnutrition; R64 Cachexia; D63.8 Anemia in other chronic diseases classified elsewhere; E87.1 Hypo-osmolality and hyponatremia; E88.09 Other disorders of plasma-protein metabolism, not elsewhere classified; I12.0 Hypertensive chronic kidney disease with stage 5 chronic kidney disease or end stage renal disease; N18.6 End stage renal disease; L97.519 Non-pressure chronic ulcer of other part of right foot with unspecified severity; E11.22 Type 2 diabetes mellitus with diabetic chronic kidney disease; S71.101A Unspecified open wound, right thigh, initial encounter; Z99.2 Dependence on renal dialysis; S71.102A Unspecified open wound, left thigh, initial encounter; X58.XXXA Exposure to other specified factors, initial encounter; E03.9 Hypothyroidism, unspecified; E11.621 Type 2 diabetes mellitus with foot ulcer; E83.42 Hypomagnesemia; E87.5 Hyperkalemia; F17.210 Nicotine dependence, cigarettes, uncomplicated; Z79.4 Long term (current) use of insulin; Z88.0 Allergy status to penicillin; R53.1 Weakness; Z68.21 Body mass index [BMI] 21.0-21.9, adult; N25.0 Renal osteodystrophy; M62.50 Muscle wasting and atrophy, not elsewhere classified, unspecified site; L97.518 Non-pressure chronic ulcer of other part of right foot with other specified severity; E11.622 Type 2 diabetes mellitus with other skin ulcer; L97.828 Non-pressure chronic ulcer of other part of left lower leg with other specified severity; Y84.8 Other medical procedures as the cause of abnormal reaction of the patient, or of later complication, without mention of misadventure at the time of the procedure; Y92.128 Other place in nursing home as the place of occurrence of the external cause
CPT/HCPCS: 36415; 70030-TC; 70450; 71045; 76870; 83735; 84100; 84132; 84484; 85018; 85025; 86704; 86705; 86706; 86803; 86850; 86900; 86901; 86920; 87040; 87340; 90937; 93005; A4649; A6213; G0378; G0480; J1644; J1953; J1956; J2060; J2250; J3010; J3370; J3475; J3490; J7040; J7050; J7060; P9016

== ENCOUNTER 2022-08-22 11:48 | Inpatient (IN) | payer OTHER ==
[~2022-08-22] VITALS: Ht 185.4 cm; Wt 79.9 kg
[~2022-08-22 11:48] MED LIST: AMLO-212 PO; CALC667C6 PO; CLON0.1T PO; CLON0.5T PO; FERR-68 PO; HYDR-4209 PO; INSU100V39 SQ; LEVE500T9 PO; LEVO25TA9 PO
[2022-08-22] MEDS ORDERED: ONDANSETRON 4 MG/2 ML VIAL IV ONE (12:30)
[2022-08-22] MEDS ORDERED: IV NORMAL SALINE 500 ML BAG IV ONE (12:30)
[2022-08-22] MEDS ORDERED: MORPHINE SULFATE 4 MG/1 ML DISP.SYRIN IV ONE (12:30)
--- NOTE | 2022-08-22 12:40 | NUR ---
COVID swab collected and sent to LAB.
[2022-08-22] MEDS ORDERED: MORPHINE SULFATE 4 MG/1 ML DISP.SYRIN ONE (12:44)
[2022-08-22] MEDS ORDERED: ONDANSETRON 4 MG/2 ML VIAL ONE (12:44)
[2022-08-22 12:49] LABS: HEMATOCRIT 21.1 % (36.7-47.1); MEAN CORPUSCULAR HEMOGLOBIN 27.4 uug (23.8-33.4); MEAN CORPUSCULAR VOLUME 83.4 fL (73.0-96.2); PLATELET COUNT (AUTO) 151 K/uL (152-348)
[2022-08-22 13:09] LABS: BILIRUBIN,DIRECT 0.1 mg/dL (0.0-0.2); BILIRUBIN,TOTAL 0.4 mg/dL (0.2-1.0); CREATININE 6.9 mg/dL (0.6-1.3); POTASSIUM 5.8 mmol/L (3.5-5.1); TOTAL PROTEIN, SERUM 5.4 g/dL (6.4-8.2)
--- NOTE | 2022-08-22 13:19 | NUR ---
lab reports of hgb 6.9 notified results received by brand marketing intern.
--- NOTE | 2022-08-22 13:25 | NUR ---
Returned from CT, pain decreased, see pain assessment. Blood glucose checked 101, pt given lunch. urine sample collected, voided 400cc ferrari urine. NS IVF infusing. Obtained consent for Blood transfusion.
[2022-08-22] MEDS ORDERED: HYDR-894 PO (13:38)
[2022-08-22] MEDS ORDERED: LEVE100S PO (13:38)
[2022-08-22] MEDS ORDERED: INSULIN REGULAR, HUMAN 300 UNITS/3 ML VIAL SQ PRN (13:45)
[2022-08-22] MEDS ORDERED: LABETALOL HCL 100 MG/20 ML VIAL IV PRN (13:45)
[2022-08-22] MEDS ORDERED: ONDANSETRON 4 MG/2 ML VIAL IV PRN (13:45)
[2022-08-22] MEDS ORDERED: ACETAMINOPHEN 325 MG TABLET PO PRN (13:45)
[2022-08-22] MEDS ORDERED: INSULIN REGULAR, HUMAN 300 UNIT/3 ML VIAL SQ PRN (13:45)
[2022-08-22] MEDS ORDERED: hydrALAZINE HCL 20 MG/1 ML VIAL IV PRN (13:45)
[2022-08-22] MEDS ORDERED: DEXTROSE 50% 50 ML DISP.SYRIN IV PRN (13:45)
[2022-08-22 14:28] LABS: *BILIRUBIN,URIN NEGATIVE (NEGATIVE); *CLARITY,URINE CLEAR (CLEAR); *COLOR,URINE YELLOW (YELLOW); *KETONES,URINE NEGATIVE (NEGATIVE); *UROBILINOGEN,URINE 0.2 E.U./dl (NORMAL); LEUKOCYTE ESTERASE ,URINE NEGATIVE (NEGATIVE); NITRITE, URINE NEGATIVE (NEGATIVE); PH,URINE 7.5 (5.0-8.0); UGLUCOSE 1+ (NEGATIVE)
[2022-08-22 14:30] LABS: *BLOOD, URINE TRACE (NEGATIVE)
[2022-08-22 15:02] LABS: BACTERIA,URINE NONE SEEN /HPF (NONE SEEN); RBC,URINE 0-3 /HPF (0-3); SQUAMOUS EPITHELIAL CELL,UR FEW /HPF (NONE SEEN); WBC,URINE 0-3 /HPF (0-3)
[2022-08-22 15:06] LABS: EOSINOPHILS % (MANUAL) 5 % (0-8); LYMPHOCYTES % (MANUAL) 16 % (20-40); MONOCYTES % (MANUAL) 7 % (2-10); NEUTROPHILS % (MANUAL) 72 % (42-75)
--- NOTE | 2022-08-22 15:30 | NUR ---
VSS, pain decreased. cleared for discharge to med-surg. Report called to Brooklynn CABRERA
[2022-08-22 15:40] VITALS: BP 140/94
[2022-08-22] MEDS: BLOOD SUGAR DIAGNOSTIC 1 EACH STRIP VI SCH ×2 (16:30→21:10)
[2022-08-22] MEDS: AMLODIPINE 5 MG TABLET PO SCH (17:55)
[2022-08-22] MEDS: CALCIUM ACETATE 667 MG CAP/TAB PO SCH (17:55)
[2022-08-22] MEDS: CLONAZEPAM 0.5 MG TABLET PO SCH (17:56)
[2022-08-22] MEDS: DOCUSATE SODIUM 100 MG CAPSULE PO SCH (17:56)
[2022-08-22 19:02] VITALS: BP 132/91
[2022-08-22 19:21] VITALS: BP 132/92
--- NOTE | 2022-08-22 19:24 | NUR ---
1400-Admitted patient from ER dept. with Dx: missed dialysis, ESRD HD dependent and anemia. Body check done with multiple scattered wounds to left and right legs. Treatment done and pictures updated; Patient rec'd HD today and a 1 unit PRBC transfusion with dialysis. 1700-Scheduled medications administered, no ASE noted. Interventions/assessements initiated. Endorsed to incoming relieving RN.
[2022-08-22 19:50] VITALS: BP 132/92
[2022-08-22] MEDS: levETIRAcetam 500 MG/5 ML LIQUID UDC PO SCH (20:47)
[2022-08-22] MEDS: HEPARIN SODIUM,PORCINE 5,000 UNITS/ML VIAL SQ SCH (21:00)
--- NOTE | 2022-08-22 22:00 | NUR ---
RECEIVED REPORT FROM RN. PATIENT IS A/O X4. JUST FINISHED HS TAKEN 2.5L OUT AND PATIENT RECEIVED 1 UNIT OF PRBC WITH HD INFUSION. HEPARIN SQ HELD AT THIS TIME. MD AWARE. PATIENT DENIES ANY PAIN OR DISCOMFORT AT THIS TIME. CALL LIGHT IN REACH. ALL NEEDS ATTENDED. WILL CONTINUE TO MONITOR AND ASSESS.
[2022-08-23 00:14] VITALS: BP 137/96
[2022-08-23 04:35] VITALS: BP 138/94
[2022-08-23] MEDS: LEVOTHYROXINE SODIUM 25 MCG TABLET PO SCH (06:09)
[2022-08-23] MEDS: BLOOD SUGAR DIAGNOSTIC 1 EACH STRIP VI SCH ×4 (06:32→20:14)
[2022-08-23] MEDS: MORPHINE SULFATE 2 MG/1 ML DISP.SYRIN IVP PRN ×3 (06:35→20:39)
[2022-08-23 06:40] LABS: HEMATOCRIT 23.9 % (36.7-47.1); MEAN CORPUSCULAR HEMOGLOBIN 28.3 uug (23.8-33.4); MEAN CORPUSCULAR VOLUME 84.6 fL (73.0-96.2); PLATELET COUNT (AUTO) 155 K/uL (152-348)
[2022-08-23 07:16] LABS: BILIRUBIN,TOTAL 0.4 mg/dL (0.2-1.0); CREATININE 4.9 mg/dL (0.6-1.3); PHOSPHOROUS 3.3 mg/dL (2.5-4.9); POTASSIUM 4.9 mmol/L (3.5-5.1); TOTAL PROTEIN, SERUM 5.4 g/dL (6.4-8.2)
[2022-08-23] MEDS: DOCUSATE SODIUM 100 MG CAPSULE PO SCH ×2 (08:34→16:26)
[2022-08-23] MEDS: CLONAZEPAM 0.5 MG TABLET PO SCH ×3 (08:34→16:27)
[2022-08-23] MEDS: CALCIUM ACETATE 667 MG CAP/TAB PO SCH ×3 (08:34→16:26)
[2022-08-23] MEDS: HEPARIN SODIUM,PORCINE 5,000 UNITS/ML VIAL SQ SCH ×2 (08:38→20:14)
[2022-08-23] MEDS: AMLODIPINE 5 MG TABLET PO SCH (08:41)
[2022-08-23] MEDS: levETIRAcetam 500 MG/5 ML LIQUID UDC PO SCH (08:41)
--- NOTE | 2022-08-23 10:00 | NUR ---
Wound care nurse here to see patient. Awaiting for further eval from dr Finn. PT is in no acute distress. Pt awake and alert x 4.
--- NOTE | 2022-08-23 11:40 | NUR ---
WOUND CARE CONSULT: PT PRESENTS WITH LARGE OPEN AREAS TO THIGHS AND LOWER LEGS, PRESENT ON ADMISSION. DR QUINN AND DR JACOBSON CALLED FOR SURGICAL AND DPM CONSULTS. LEGS ARE WRAPPED WITH XEROFORM DRESSING AND COVERED WITH ABD PADS AND KERLIX. DISCUSSED SKIN PROTECTION WITH NURSING STAFF. SACRAL AREA IS BONY. MD IN AGREEMENT WITH PLAN OF CARE.
[2022-08-23 11:44] VITALS: BP 137/94
--- NOTE | 2022-08-23 12:00 | NUR ---
manager utility notified pt requesting a different placement. Pt states "that [facility] suck". Pts MoM spoke with casemanagement as well for pt's request.
[2022-08-23 16:00] VITALS: BP 145/99
--- NOTE | 2022-08-23 19:30 | NUR ---
Received patient lying in bed. AAOX4. In no acute distress. No complain of pain or SOB at this time. Stated he did not get his dinner, snacks provided. Sinus tachy on tele with HR of 101/min. Dialysis cath on right upper chest area with dressing intact. IV site on right hand intact and patent. Needs assessed and attended to. Safety measure initiated and and call light within reached.
[2022-08-23 20:00] VITALS: BP 134/93
[2022-08-23] MEDS: levETIRAcetam 500 MG TABLET PO SCH (20:14)
[2022-08-24] VITALS: BP 140/89
[2022-08-24] MEDS: MORPHINE SULFATE 2 MG/1 ML DISP.SYRIN IVP PRN ×3 (03:35→15:02)
[2022-08-24 04:00] VITALS: BP 129/90
--- NOTE | 2022-08-24 05:53 | NUR ---
Morphine 2mg via IV given for gen. pain and effective. Other needs attended to and met. NSR on tele with HR of 86/min. Safety measure maintained and call light within reached.
[2022-08-24] MEDS: LEVOTHYROXINE SODIUM 25 MCG TABLET PO SCH (06:11)
[2022-08-24 06:33] LABS: HEMATOCRIT 24.9 % (36.7-47.1); MEAN CORPUSCULAR HEMOGLOBIN 27.9 uug (23.8-33.4); PLATELET COUNT (AUTO) 170 K/uL (152-348)
[2022-08-24] MEDS: BLOOD SUGAR DIAGNOSTIC 1 EACH STRIP VI SCH ×3 (06:36→16:24)
[2022-08-24 06:51] LABS: CREATININE 4.4 mg/dL (0.6-1.3); MAGNESIUM 1.6 mg/dL (1.8-2.4); PHOSPHOROUS 2.9 mg/dL (2.5-4.9); POTASSIUM 4.6 mmol/L (3.5-5.1)
--- NOTE | 2022-08-24 08:00 | NUR ---
AWAKE ALERT AND ORIENTED X3, NO SS OF DISTRESS. CONTINUE WITH PAIN MANAGEMENT. SR ON MONITOR
[2022-08-24] MEDS: levETIRAcetam 500 MG TABLET PO SCH (08:42)
[2022-08-24] MEDS: DOCUSATE SODIUM 100 MG CAPSULE PO SCH ×2 (08:42→17:13)
[2022-08-24] MEDS: CLONAZEPAM 0.5 MG TABLET PO SCH ×3 (08:43→17:13)
[2022-08-24] MEDS: CALCIUM ACETATE 667 MG CAP/TAB PO SCH ×3 (08:43→17:13)
[2022-08-24] MEDS: AMLODIPINE 5 MG TABLET PO SCH (08:43)
[2022-08-24] MEDS: HEPARIN SODIUM,PORCINE 5,000 UNITS/ML VIAL SQ SCH (08:44)
[2022-08-24 11:31] VITALS: BP 154/107
--- NOTE | 2022-08-24 12:00 | NUR ---
PLASTIC JOINT MAKER AND FORMING TUBE SELECTOR SPOKE WITH PATIENT ABOUT DISCHARGE PLAN. COPY OF REFERRALS GIVEN
--- NOTE | 2022-08-24 14:12 | NUR ---
AWAITING W/C FOR HOME USE, PLAN AMA
--- NOTE | 2022-08-24 14:56 | NUR ---
Clinical Social Work Note Patient is a 46 year old male who was referred by [facility] shelter case manager, as he was refusing to return to [facility] and was requesting referral to the [facility]. This music writer met with the patient who is sleepy but alert and oriented x3. He initially said he wanted shelters but then this music writer educated him that he was not suitable for a intermediate in view of his wounds that needed treatment and his inability to ambulate. Patient added that he has difficulty breathing too. He agreed to return to [facility]. This music writer told him that she would provide him with resources for other nursing home facilities and he seemed happy about this. Patient was given the [facility] handbook of nursing home facilities. [facility] shelter case manager was notified of patient's agreement to return to [facility].
[2022-08-24 16:00] VITALS: BP 154/102
--- NOTE | 2022-08-24 18:40 | NUR ---
REPORT GIVEN TO ISAURA CABRERA AT [facility] ROOM 211-B
--- NOTE | 2022-08-24 19:40 | NUR ---
Patient discharge to [facility], picked up by [facility] ambulance #[id number], via gurney accompanied by 2 paramedics. Patient AAOx4. In no acute distress. VS WNL. All paper work and belongings with patient. PIV discontinued, telemetry box removed.
[2022-08-25] MEDS ORDERED: NEPRO (VANILLA) 237 ML CAN PO SCH (09:00)
== END 2022-08-24 20:00 | DRG 425 ==
LOC: ER 11:48 → UNDOADMIN 15:19 → TELE3 15:19 → MEDSURG3 15:19
PROVIDERS: ADMIT Internal Medicine; ATTEND Internal Medicine
PROC: 5A1D70Z Performance of Urinary Filtration, Intermittent, Less than 6 Hours Per Day (ICD-10-PCS; principal; 2022-08-22)
PROC: 30233N1 Transfusion of Nonautologous Red Blood Cells into Peripheral Vein, Percutaneous Approach (ICD-10-PCS; principal; 2022-08-22)
DX: E87.70 Fluid overload, unspecified (principal); E43 Unspecified severe protein-calorie malnutrition; I12.0 Hypertensive chronic kidney disease with stage 5 chronic kidney disease or end stage renal disease; D69.6 Thrombocytopenia, unspecified; J90 Pleural effusion, not elsewhere classified; D63.1 Anemia in chronic kidney disease; K76.6 Portal hypertension; E87.1 Hypo-osmolality and hyponatremia; E11.22 Type 2 diabetes mellitus with diabetic chronic kidney disease; N18.6 End stage renal disease; L97.828 Non-pressure chronic ulcer of other part of left lower leg with other specified severity; E11.622 Type 2 diabetes mellitus with other skin ulcer; Z68.23 Body mass index [BMI] 23.0-23.9, adult; Z91.158 Patient's noncompliance with renal dialysis for other reason; E87.5 Hyperkalemia; F17.210 Nicotine dependence, cigarettes, uncomplicated; G40.909 Epilepsy, unspecified, not intractable, without status epilepticus; Z99.2 Dependence on renal dialysis; Z88.0 Allergy status to penicillin; Z79.4 Long term (current) use of insulin; Z79.899 Other long term (current) drug therapy; Z79.890 Hormone replacement therapy; J98.11 Atelectasis; S71.102D Unspecified open wound, left thigh, subsequent encounter; S71.101D Unspecified open wound, right thigh, subsequent encounter; X58.XXXD Exposure to other specified factors, subsequent encounter; E03.9 Hypothyroidism, unspecified; N25.0 Renal osteodystrophy; K74.60 Unspecified cirrhosis of liver
CPT/HCPCS: 36415; 70030-TC; 71045; 83605; 83690; 83735; 84100; 85025; 85730; 86850; 86900; 86901; 86920; 87040; 90937; 93005; A6213; G0378; J1644; J1815; J2270; J2405; J7040; P9016

== ENCOUNTER 2022-08-31 02:06 | Inpatient (IN) | payer OTHER ==
[~2022-08-31] VITALS: Ht 180.3 cm; Wt 74.4 kg
[~2022-08-31 02:06] MED LIST changes: +HYDR-894 PO; +LEVE100S PO; -LEVE500T9 PO
--- NOTE | 2022-08-31 02:20 | NUR ---
PT PADMAJAA TO RM 5A.
[2022-08-31] MEDS ORDERED: LIDOCAINE 2%-EPI 1:100,000 20 ML VIAL ONE (02:25)
[2022-08-31] MEDS ORDERED: TDAP DIPH,PERTUSS,TET VAC/PF 0.5 ML DISP.SYRIN IM ONE (02:30)
[2022-08-31 03:29] LABS: HEMATOCRIT 29.5 % (36.7-47.1); MEAN CORPUSCULAR HEMOGLOBIN 27.7 uug (23.8-33.4); MEAN CORPUSCULAR VOLUME 85.2 fL (73.0-96.2); PLATELET COUNT (AUTO) 128 K/uL (152-348)
[2022-08-31 03:44] LABS: CREATININE 5.3 mg/dL (0.6-1.3)
[2022-08-31 03:50] LABS: BILIRUBIN,DIRECT 0.3 mg/dL (0.0-0.2); BILIRUBIN,TOTAL 0.7 mg/dL (0.2-1.0)
[2022-08-31] MEDS ORDERED: SODIUM POLYSTYRENE SULFONATE 15 G/60 ML LIQUID UDC PO ONE (04:00)
--- NOTE | 2022-08-31 04:00 | NUR ---
ASSISTING MD AT BEDSIDE APPLYING STERISTRIPS TO LACERATIONS ON L LE.
--- NOTE | 2022-08-31 04:30 | NUR ---
I SPOKE WITH RODOLFO CABRERA WITH [facility]. THEY SAID THE PT WAS OUT OF THE FACILITY AT [facility] 08/28 - 08/30 AND MISSED HIS DIALYSIS. DR TREVA CLIFTON IS HIS FAMILY SERVICE COUNSELOR. DR Fermin LEE IS AWARE.
--- NOTE | 2022-08-31 04:55 | NUR ---
Paged [facility] for Dr Marinelli, waiting for Dr Fischer to call back who is alberene stone setter for the group.
--- NOTE | 2022-08-31 05:19 | NUR ---
Dr Oakley spoke with Dr Fischer for nephrology consult.
[2022-08-31] MEDS ORDERED: INSU100V39 SQ (05:27)
[2022-08-31] MEDS ORDERED: LEVE500T83 PO (05:27)
--- NOTE | 2022-08-31 05:34 | NUR ---
Paged Sepideh BAZAN crushed stone grader, waiting for Sherita Ann NP to call back.
--- NOTE | 2022-08-31 05:50 | NUR ---
Dr Oakley spoke with Marissa ORR container packer operator for [facility] who accept to to Tele floor.
[2022-08-31] MEDS ORDERED: ONDANSETRON 4 MG/2 ML VIAL IV PRN (06:00)
[2022-08-31] MEDS ORDERED: MAGNESIUM HYDROXIDE 30 ML LIQUID UDC PO PRN (06:00)
[2022-08-31] MEDS ORDERED: REMEDY ESSENTIAL ZINC PASTE 113 GM TP PRN (06:00)
[2022-08-31] MEDS ORDERED: ACETAMINOPHEN 325 MG TABLET PO PRN (06:00)
[2022-08-31] MEDS ORDERED: DEXTROSE 50% 50 ML DISP.SYRIN IV PRN (06:00)
--- NOTE | 2022-08-31 06:45 | NUR ---
COVID SWAB AND MRSA SWAB COLLECTED/SENT TO LAB.
--- NOTE | 2022-08-31 07:16 | NUR ---
REPORT GIVEN TO CLOVER CABRERA.
[2022-08-31] MEDS: BLOOD SUGAR DIAGNOSTIC 1 EACH STRIP VI SCH ×4 (07:49→21:00)
[2022-08-31] MEDS: HYDROCODONE/APAP 5-325MG TABLET PO PRN (07:52)
--- NOTE | 2022-08-31 07:56 | NUR ---
Accu-check = 72. Gave pt 2 OJ and breakfast tray. Pt c/o left sided rib pain 11/27, administered [place] 5/325.
--- NOTE | 2022-08-31 08:00 | NUR ---
Called 3rd floor for room. They WCB.
[2022-08-31] MEDS: AMLODIPINE 5 MG TABLET PO SCH (09:00)
--- NOTE | 2022-08-31 10:11 | NUR ---
report received from Pineda ARORA RN. pt will go to rm [id number].
--- NOTE | 2022-08-31 10:14 | NUR ---
wound care consulted. pending podiatry consult.
[2022-08-31 11:55] VITALS: BP 155/104; TEMP 97.9; O2SAT 93
[2022-08-31] MEDS ORDERED: LORAZEPAM 2 MG/1 ML VIAL IV PRN (12:15)
[2022-08-31] MEDS: levETIRAcetam 500 MG TABLET PO SCH ×2 (14:33→21:00)
[2022-08-31] MEDS: CLONAZEPAM 0.5 MG TABLET PO SCH ×2 (14:34→17:54)
[2022-08-31 15:48] VITALS: BP 157/102; TEMP 97.9; O2SAT 95
[2022-08-31] MEDS: hydrALAZINE HCL 25 MG TABLET PO PRN (16:15)
--- NOTE | 2022-08-31 16:45 | NUR ---
s/p hemodialysis; pt bp 183/97. prn hydralazine 25mg was given. will reassess in 1 hr.
[2022-08-31] MEDS: INSULIN REGULAR, HUMAN 300 UNIT/3 ML VIAL SQ PRN (16:56)
[2022-08-31] MEDS: CALCIUM ACETATE 667 MG CAP/TAB PO SCH (17:54)
[2022-08-31 18:00] VITALS: BP 147/91; O2SAT 96
--- NOTE | 2022-08-31 19:29 | NUR ---
bp recheck 147/91 hr 101. pt denies any pain or dizziness. endorsed to noc shift.
[2022-09-01] VITALS (10 sets, daily range): BP systolic 122–152; BP diastolic 74–99; TEMP 98–99; O2SAT 95–97
--- NOTE | 2022-09-01 04:43 | NUR ---
SHIFT NOTE: RECEIVED REPORT FROM PM NURSE PT IS ALERT AND ORIENTED X4 AND HAD ELEVATED TEMP GAVE 2 TABLETS OF TYLENOL. PT HAD DIALYSIS 2L TAKEN OUT PT HS BLOOD SUGAR IS 114 NO SIGNS OF DIABETIC REACTION NOTED. NO ADVERSE REACTION FROM EVENING MEDICATION PT MONITORED EVERY 2 HOURS AND STABLE THROUGHOUT THE SHIFT WILL ENDORSE TO AM NURSE.
[2022-09-01] MEDS: LEVOTHYROXINE SODIUM 25 MCG TABLET PO SCH (06:48)
[2022-09-01] MEDS: BLOOD SUGAR DIAGNOSTIC 1 EACH STRIP VI SCH ×4 (06:48→21:44)
[2022-09-01 07:31] LABS: MEAN CORPUSCULAR HEMOGLOBIN 27.9 uug (23.8-33.4); MEAN CORPUSCULAR VOLUME 83.8 fL (73.0-96.2); PLATELET COUNT (AUTO) 127 K/uL (152-348)
[2022-09-01 07:38] LABS: CREATININE 4.8 mg/dL (0.6-1.3); MAGNESIUM 1.7 mg/dL (1.8-2.4); PHOSPHOROUS 4.2 mg/dL (2.5-4.9); POTASSIUM 4.7 mmol/L (3.5-5.1)
[2022-09-01] MEDS: CLONAZEPAM 0.5 MG TABLET PO SCH ×3 (08:32→17:03)
[2022-09-01] MEDS: levETIRAcetam 500 MG TABLET PO SCH ×2 (08:32→21:44)
[2022-09-01] MEDS: AMLODIPINE 5 MG TABLET PO SCH (08:32)
[2022-09-01] MEDS: CALCIUM ACETATE 667 MG CAP/TAB PO SCH ×3 (09:11→17:03)
--- NOTE | 2022-09-01 09:27 | NUR ---
WOUND CARE CONSULT: PT PRESENTS WITH BILATERAL LOWER EXTREMITY WOUNDS, PRESENT ON ADMISSION. LEG WRAPS ARE DRY AND INTACT AT THIS TIME. DEFER TO SURGICAL/PODIATRY TEAM CURRENTLY ON CASE FOR WOUND TREATMENT. SACRAL AREA IS VERY BONY. RECOMMENDATIONS MADE FOR SKIN PROTECTION. DISCUSSED WITH NURSING STAFF. MD IN AGREEMENT WITH PLAN OF CARE.
[2022-09-01] MEDS ORDERED: MAGNESIUM OXIDE 400 MG TABLET PO ONE (09:30)
[2022-09-01] MEDS: HYDROCODONE/APAP 5-325MG TABLET PO PRN (09:40)
--- NOTE | 2022-09-01 10:06 | NUR ---
0730-Rec'd patient in bed, awake. AOx4, Luxembourgish speaking, able to verbalize his needs & follow directions. Patient in no acute respiratory distress, on R/A and calin. well. Patient denies any discomfort at this time. Oral fluids encouraged as tolerated and taken well. Call light within reach, encouraged to use it for help every time needed with good understanding. 0900-Scheduled oral medications administered as ordered with no ASE noted, no s/s of hypo/HTN, hypo/hypoergycemia noted, DC'D from telemetry.
[2022-09-01 10:28] LABS: HEMATOCRIT 19.3 % (36.7-47.1)
--- NOTE | 2022-09-01 11:18 | NUR ---
1027-Rec'd endorsement from lab (Nick) patient's HGB=6.4, HCT=19.3 & RBC=2.[address] Mert Durbin. doing rounds on the floor & made aware of above lab values with pending orders.
[2022-09-01 11:19] LABS: EOSINOPHILS % (MANUAL) 2 % (0-8); LYMPHOCYTES % (MANUAL) 28 % (20-40); MONOCYTES % (MANUAL) 7 % (2-10); NEUTROPHILS % (MANUAL) 63 % (42-75)
--- NOTE | 2022-09-01 19:33 | NUR ---
1 unit PRBC administered as ordered, no ASE noted. VSS, patient is been dialyzed, remains in stable conditions within his baseline. Endorsed to relieving RN.
--- NOTE | 2022-09-01 23:43 | NUR ---
HD NURSE FINISHED DIALYSIS REMOVED 3L PATIENT TOLERATED WELL TOOK HS MEDICATION AND ATE DINNER. NO ADVERSE REACTION FROM MEDICATION . PT HS BLOOD SUGAR IS 85 NO SIGNS OF DIABETIC REACTION NOTED. WILL CONTINUE TO MONITOR FOR SAFETY.
[2022-09-02] VITALS: BP 118/68; TEMP 98.2; O2SAT 95
[2022-09-02 06:20] LABS: HEMATOCRIT 22.7 % (36.7-47.1); MEAN CORPUSCULAR HEMOGLOBIN 28.3 uug (23.8-33.4)
[2022-09-02] MEDS: LEVOTHYROXINE SODIUM 25 MCG TABLET PO SCH (06:26)
[2022-09-02 06:27] VITALS: BP 165/99; TEMP 98; O2SAT 98
--- NOTE | 2022-09-02 06:31 | NUR ---
PT BLOOD PRESSURE ELEVATED 65/99 GAVE 25 MG OF APRESOLINE AND BLOOD SUGAR 78 NO SIGNS OF DIABETIC REACTION NOTED. WILL ENDORSE TO AM NURSE.
--- NOTE | 2022-09-02 06:37 | NUR ---
NOTE ERROR ON WEIGHT FOR 09/01/22 WEIGH SHOULD BE 176 NOT 224.
--- NOTE | 2022-09-02 06:59 | NUR ---
pt slept throughout night and is stable no signs of distress noted. Will continue to monitor for safety and falls will endorse to am nurse
[2022-09-02 07:02] LABS: CREATININE 4.7 mg/dL (0.6-1.3); PHOSPHOROUS 4.2 mg/dL (2.5-4.9); POTASSIUM 4.6 mmol/L (3.5-5.1)
[2022-09-02] MEDS: INSULIN REGULAR, HUMAN 300 UNIT/3 ML VIAL SQ PRN (07:05)
[2022-09-02] MEDS: BLOOD SUGAR DIAGNOSTIC 1 EACH STRIP VI SCH ×4 (07:05→20:45)
[2022-09-02 07:12] LABS: MAGNESIUM 2.1 mg/dL (1.8-2.4)
--- NOTE | 2022-09-02 07:23 | NUR ---
TYPE ERROR BLOOD PRESSURE IS 165/99 WILL CONTINUE TO MONITOR FOR SAFETY.
--- NOTE | 2022-09-02 07:30 | NUR ---
Awake, alert, oriented x 4, on moderate high back rest. Denies pain.
[2022-09-02] MEDS: CLONAZEPAM 0.5 MG TABLET PO SCH ×3 (08:45→17:45)
[2022-09-02] MEDS: CALCIUM ACETATE 667 MG CAP/TAB PO SCH ×3 (08:45→17:45)
[2022-09-02] MEDS: levETIRAcetam 500 MG TABLET PO SCH ×2 (08:45→20:39)
[2022-09-02] MEDS: AMLODIPINE 5 MG TABLET PO SCH (08:49)
[2022-09-02 09:07] LABS: PLATELET COUNT (AUTO) 16 K/uL (152-348)
[2022-09-02 11:04] VITALS: BP 152/96; TEMP 98.7; O2SAT 96
[2022-09-02 11:19] LABS: MONOCYTES % (MANUAL) 5 % (2-10)
[2022-09-02 11:29] LABS: EOSINOPHILS % (MANUAL) 1 % (0-8); LYMPHOCYTES % (MANUAL) 34 % (20-40); NEUTROPHILS % (MANUAL) 60 % (42-75)
[2022-09-02] MEDS: MUPIROCIN 2% OINT 22 GM TUBE NS SCH ×2 (12:46→20:47)
[2022-09-02 15:17] VITALS: BP 100/58; TEMP 98.4; O2SAT 94
--- NOTE | 2022-09-02 15:55 | NUR ---
Hemodialysis done with 2 L output
--- NOTE | 2022-09-02 16:30 | NUR ---
Wound care done to BLE as ordered, kept clean and dry
--- NOTE | 2022-09-02 18:04 | NUR ---
Afebrile. Denies pain.
[2022-09-02 20:19] VITALS: BP 156/107; TEMP 98.3; O2SAT 94
[2022-09-02] MEDS: hydrALAZINE HCL 25 MG TABLET PO PRN (20:39)
[2022-09-03 04:36] VITALS: BP 168/116; TEMP 98.2; O2SAT 97
[2022-09-03] MEDS: hydrALAZINE HCL 25 MG TABLET PO PRN (05:15)
--- NOTE | 2022-09-03 05:58 | NUR ---
AAOx4 All needs attended. Fall precautions maintained. Siderails up for safety. Call pearson within reach. Tolerated po meds well. BP 156/107 at beginning of shift. Denies any pain nor any discomfort. Hydralazine 50 mg po given as needed for HTN. Slept well most of the shift. Bilateral lower extremities dressing clean dry and intact. 6am BP 168/103 Hydralazine given again. Will monitor patient's BP. Patient asymptomatic. Patient for possible dialysis today. Was dialyzed yesterday, 2 L out. Dialysis [id number]. Right subclavian permacath intact.Will monitor patient.
[2022-09-03] MEDS: LEVOTHYROXINE SODIUM 25 MCG TABLET PO SCH (06:16)
[2022-09-03 06:34] LABS: HEMATOCRIT 23.7 % (36.7-47.1); MEAN CORPUSCULAR HEMOGLOBIN 28.6 uug (23.8-33.4); MEAN CORPUSCULAR VOLUME 85.1 fL (73.0-96.2); PLATELET COUNT (AUTO) 138 K/uL (152-348)
[2022-09-03 06:59] LABS: CREATININE 4.2 mg/dL (0.6-1.3); MAGNESIUM 1.7 mg/dL (1.8-2.4); PHOSPHOROUS 3.3 mg/dL (2.5-4.9); POTASSIUM 4.1 mmol/L (3.5-5.1)
[2022-09-03 07:01] LABS: *RHEUMATOID FACTOR SCREEN NEGATIVE (NEGATIVE)
[2022-09-03] MEDS: BLOOD SUGAR DIAGNOSTIC 1 EACH STRIP VI SCH ×4 (07:17→20:28)
[2022-09-03 07:46] LABS: THYROID STIMULATING HORMONE 27.139 mIU/mL (0.358-3.740)
[2022-09-03] MEDS: CLONAZEPAM 0.5 MG TABLET PO SCH ×3 (09:12→16:59)
[2022-09-03] MEDS: AMLODIPINE 5 MG TABLET PO SCH (09:13)
[2022-09-03] MEDS: CALCIUM ACETATE 667 MG CAP/TAB PO SCH ×3 (09:13→17:03)
[2022-09-03] MEDS: levETIRAcetam 500 MG TABLET PO SCH ×2 (09:13→20:28)
[2022-09-03] MEDS: MUPIROCIN 2% OINT 22 GM TUBE NS SCH ×2 (09:14→20:29)
[2022-09-03] MEDS ORDERED: MAGNESIUM OXIDE 400 MG TABLET PO ONE (09:45)
--- NOTE | 2022-09-03 10:38 | NUR ---
MAG LEVEL IS 1.7 WITH ORDER FOR MAG REPLACEMENT AND NOTED.
[2022-09-03 11:54] VITALS: BP 158/62; TEMP 98; O2SAT 95
--- NOTE | 2022-09-03 15:00 | NUR ---
WOUND CARE ORDERED ASSISTED WITH REPOSITIONING MADE COMFORTABLE WILL CONTINUE TO OBSERVE.
[2022-09-03 16:00] VITALS: BP 160/106; TEMP 98; O2SAT 96
[2022-09-03] MEDS: HYDROCODONE/APAP 5-325MG TABLET PO PRN (17:00)
--- NOTE | 2022-09-03 17:30 | NUR ---
DR FREIRE HERE AND SEEN PATIENT WITH NEW ORDERS AND NOTED
[2022-09-03 19:59] VITALS: BP 163/107; TEMP 98.3; O2SAT 95
[2022-09-04 04:00] VITALS: BP 172/117; TEMP 98.1; O2SAT 93
[2022-09-04] MEDS: hydrALAZINE HCL 25 MG TABLET PO PRN (05:33)
[2022-09-04] MEDS: LEVOTHYROXINE SODIUM 25 MCG TABLET PO SCH (06:04)
[2022-09-04 06:22] LABS: HEMATOCRIT 25.2 % (36.7-47.1); MEAN CORPUSCULAR HEMOGLOBIN 28.3 uug (23.8-33.4); MEAN CORPUSCULAR VOLUME 84.4 fL (73.0-96.2); PLATELET COUNT (AUTO) 144 K/uL (152-348)
[2022-09-04] MEDS: BLOOD SUGAR DIAGNOSTIC 1 EACH STRIP VI SCH ×4 (06:30→20:36)
[2022-09-04 06:37] LABS: CREATININE 5.5 mg/dL (0.6-1.3); POTASSIUM 4.9 mmol/L (3.5-5.1)
[2022-09-04] MEDS: CLONAZEPAM 0.5 MG TABLET PO SCH ×3 (08:53→16:52)
[2022-09-04] MEDS: CALCIUM ACETATE 667 MG CAP/TAB PO SCH ×3 (08:53→18:03)
[2022-09-04] MEDS: levETIRAcetam 500 MG TABLET PO SCH ×2 (08:53→20:34)
[2022-09-04] MEDS: AMLODIPINE 5 MG TABLET PO SCH (08:53)
[2022-09-04] MEDS: MUPIROCIN 2% OINT 22 GM TUBE NS SCH ×2 (08:54→20:55)
--- NOTE | 2022-09-04 09:00 | NUR ---
AWAKE ALERT AND ORIENTED DENIES PAIN OR DISCOMFORTS AT THIS TIME PERMA CATH RIGHT UPPER CHEST REMAIN INTACT NOT IN DISTRESS AT THIS TIME WILL CONTINUE TO OBSERVE.
[2022-09-04 09:06] LABS: *IMMUNOGLOBULIN G, SERUM 1418 mg/dL (603-1613); IMMUNOGLOBULIN M, SERUM 98 mg/dL (20-172)
[2022-09-04 11:28] VITALS: BP 158/102; TEMP 99.2; O2SAT 91
[2022-09-04] MEDS: HYDROCODONE/APAP 5-325MG TABLET PO PRN (12:57)
--- NOTE | 2022-09-04 12:57 | NUR ---
STATED HAS GENERALISED PAIN MEDICATED WITH NORCO ORDERED MADE COMFORTABLE WILL CONTINUE TO OBSERVE.
[2022-09-04 16:28] VITALS: BP 130/87; TEMP 98.5; O2SAT 100
--- NOTE | 2022-09-04 17:15 | NUR ---
DIALYSIS COMPLETED ORDERED AND 3 LITERS REMOVED TOLERATED WELL
[2022-09-04 19:49] VITALS: BP 150/105; TEMP 98.2; O2SAT 94
[2022-09-05 05:30] VITALS: BP 168/107; TEMP 98.5; O2SAT 96
[2022-09-05] MEDS: hydrALAZINE HCL 25 MG TABLET PO PRN ×2 (05:57→20:46)
[2022-09-05] MEDS ORDERED: MORPHINE SULFATE 2 MG/1 ML DISP.SYRIN IV ONE ×2 (06:00→21:00)
[2022-09-05] MEDS: LEVOTHYROXINE SODIUM 25 MCG TABLET PO SCH (06:22)
[2022-09-05] MEDS: BLOOD SUGAR DIAGNOSTIC 1 EACH STRIP VI SCH ×4 (06:30→20:42)
[2022-09-05 06:31] LABS: HEMATOCRIT 22.8 % (36.7-47.1); MEAN CORPUSCULAR HEMOGLOBIN 28.3 uug (23.8-33.4); MEAN CORPUSCULAR VOLUME 84.7 fL (73.0-96.2); PLATELET COUNT (AUTO) 156 K/uL (152-348)
[2022-09-05 06:46] LABS: CREATININE 4.8 mg/dL (0.6-1.3); POTASSIUM 4.8 mmol/L (3.5-5.1)
--- NOTE | 2022-09-05 07:41 | NUR ---
RECEIVED PATIENT IN BED AWAKE ALERT AND ORIENTED SEEMS COMFORTABLE WITH NO C/O PAIN OR DISCOMFORTS AT THIS TIME DENIES SHORTNESS OF BREATH AT THIS TIME RIGHT UPPER CHEST PERMA CATH INTACT S/P DIALYSIS WITH NO ADVERSE EFFECTS MULTIPLE BILATERAL LEG WOUNDS WITH DRESSING INTACT CALL LIGHTS AND PERSONAL BELONGINGS ARE WITHIN EASY REACH WILL CONTINUE TO OBSERVE.
[2022-09-05] MEDS: CLONAZEPAM 0.5 MG TABLET PO SCH ×3 (08:52→16:30)
[2022-09-05] MEDS: AMLODIPINE 5 MG TABLET PO SCH (08:53)
[2022-09-05] MEDS: levETIRAcetam 500 MG TABLET PO SCH ×2 (08:53→20:24)
[2022-09-05] MEDS: MUPIROCIN 2% OINT 22 GM TUBE NS SCH ×2 (08:53→20:24)
[2022-09-05] MEDS: CALCIUM ACETATE 667 MG CAP/TAB PO SCH ×3 (08:53→17:44)
[2022-09-05 11:15] LABS: *ANTI-SCLERODERMA-70 AB <0.2 AI (0.0-0.9); *SJOGREN'S ANTI-SS-A <0.2 AI (0.0-0.9); *SJOGREN'S ANTI-SS-B <0.2 AI (0.0-0.9); *SMITH ANTIBODIES <0.2 AI (0.0-0.9); ANTI-DNA(DS) AB, QN <1 IU/mL (0-9)
[2022-09-05 11:20] VITALS: BP 160/104; TEMP 98.4; O2SAT 96
--- NOTE | 2022-09-05 12:12 | NUR ---
HAD AN INCIDENT WHEN PATIENT REQUESTED NORCO EVEN THOUGH HE HAD STATED THAT NORCO DID NOT WORK FOR HIM NOT SURE IF HE WILL ACCEPT BECAUSE HE WANT TOMI MARK TO PRESCRIBE MORPHINE OR DEMEROL BUT TOMI DECLINED STATED THAT HE SHOULD TAKE ONLY NORCO ORDERED.SO PATIENT IN THE BEGINNING WAS NOT AGREEING TO TAKE THE NORCO SO WHEN I FINALLY CONVINCED HIM TO TAKE THE NORCO,SCANNED AND ADMINISTERED BUT THEN REALIZED AFTER A WHILE THAT THE SCAN DID NOT REGISTER AND DID NOT GO THROUGH.
[2022-09-05 12:27] VITALS: O2SAT 96
[2022-09-05] MEDS: HYDROCODONE/APAP 5-325MG TABLET PO PRN (13:30)
--- NOTE | 2022-09-05 14:30 | NUR ---
DIALYSIS COMPLETED AND 2000 ML REMOVED PATIENT TOLERATED PROCEDURE WELL.
[2022-09-05 15:07] VITALS: BP 145/98; TEMP 98.7; O2SAT 100
--- NOTE | 2022-09-05 18:00 | NUR ---
RESTING S/P DIALYSIS WITH NO C/O AT THIS TIME.PERMA CATH IS INTACT.
[2022-09-06 03:06] LABS: HEPATITIS B SURFACE AG Negative (Negative)
[2022-09-06 04:20] VITALS: BP 136/89; TEMP 98.5; O2SAT 94
[2022-09-06 05:07] LABS: A/G RATIO 0.6 (0.7-1.7); ALBUMIN 1.9 g/dL (2.9-4.4); ALPHA-1-GLOBULIN 0.4 g/dL (0.0-0.4); ALPHA-2-GLOBULIN 0.6 g/dL (0.4-1.0); BETA GLOBULIN 0.7 g/dL (0.7-1.3); GAMMA GLOBULIN 1.5 g/dL (0.4-1.8); GLOBULIN, TOTAL 3.2 g/dL (2.2-3.9); M-SPIKE Not Observed g/dL (Not Observed)
[2022-09-06] MEDS: HYDROCODONE/APAP 5-325MG TABLET PO PRN (05:07)
[2022-09-06] MEDS: LEVOTHYROXINE SODIUM 25 MCG TABLET PO SCH (06:21)
[2022-09-06 07:05] LABS: MEAN CORPUSCULAR HEMOGLOBIN 28.3 uug (23.8-33.4); MEAN CORPUSCULAR VOLUME 84.8 fL (73.0-96.2); PLATELET COUNT (AUTO) 175 K/uL (152-348)
[2022-09-06] MEDS: BLOOD SUGAR DIAGNOSTIC 1 EACH STRIP VI SCH ×4 (07:57→21:00)
[2022-09-06 08:18] LABS: CREATININE 4.4 mg/dL (0.6-1.3); POTASSIUM 4.9 mmol/L (3.5-5.1)
[2022-09-06] MEDS: CLONAZEPAM 0.5 MG TABLET PO SCH ×3 (08:36→16:52)
[2022-09-06] MEDS: CALCIUM ACETATE 667 MG CAP/TAB PO SCH ×3 (08:36→17:43)
[2022-09-06] MEDS: levETIRAcetam 500 MG TABLET PO SCH ×2 (08:36→22:00)
[2022-09-06] MEDS: NEPRO (VANILLA) 237 ML CAN PO SCH (08:37)
[2022-09-06] MEDS: MUPIROCIN 2% OINT 22 GM TUBE NS SCH ×2 (08:37→21:00)
[2022-09-06] MEDS: AMLODIPINE 5 MG TABLET PO SCH (08:40)
--- NOTE | 2022-09-06 11:50 | NUR ---
PATIENT IS ASKING FOR IV PAIN MEDICATION INFORMED HIM THAT I ALREADY ASKED THE DR DELGADO THIS AM AND HE DECLINED BUT HE STATED THAT HE WAS PROMISED THAT IT WILL BE ORDERED TODAY SO I CALLED DR DELGADO AGAIN SPOKE WITH HIM AND HE STATED HE CAN ONLY HAVE NORCO ORDERED NO OTHER PAIN MEDICATIONS AT THIS TIME.
[2022-09-06] MEDS ORDERED: EPOETIN ALFA-EPBX 10,000 UNIT/ML VIAL SQ ONE (12:00)
[2022-09-06] MEDS ORDERED: EPOETIN ALFA 10,000 UNITS/ML VIAL SQ ONE (12:00)
--- NOTE | 2022-09-06 14:00 | NUR ---
PATIENT IS REFUSING TO TAKE NORCO STATED THAT IT DOES NOT HELP INFORMED HIM THE THE DOCTORS ARE AWARE OF HIS REQUEST BUT NO OTHERS RECEIVED YET AT THIS TIME.
[2022-09-06 15:46] VITALS: BP 161/111; TEMP 98
[2022-09-06] MEDS: hydrALAZINE HCL 25 MG TABLET PO PRN (16:14)
--- NOTE | 2022-09-06 18:00 | NUR ---
PATIENT REFUSED BLOOD SUGAR CHECKS ALL DAY TODAY STATED THAT HE IS NOT DIABETIC AND WILL NOT ALLOW BLOOD SUGAR CHECKS.DR DELGADO/KAMALA WAS NOTIFIED THIS AM THAT PATIENT IS CLAIMING THAT HE IS NOT DIABETICS AND THEY STATED WILL REVIEW.
[2022-09-06 20:00] VITALS: BP 163/90; TEMP 98.2; O2SAT 100
[2022-09-07 04:00] VITALS: BP 160/90; TEMP 97.9; O2SAT 95
[2022-09-07] MEDS: LEVOTHYROXINE SODIUM 25 MCG TABLET PO SCH (06:08)
[2022-09-07] MEDS: BLOOD SUGAR DIAGNOSTIC 1 EACH STRIP VI SCH ×4 (06:55→21:06)
--- NOTE | 2022-09-07 07:30 | NUR ---
REPORT GIVEN TO DEBORAH BLANCA
[2022-09-07] MEDS: CALCIUM ACETATE 667 MG CAP/TAB PO SCH ×3 (08:24→17:33)
[2022-09-07] MEDS: CLONAZEPAM 0.5 MG TABLET PO SCH ×3 (09:46→17:33)
[2022-09-07] MEDS: MUPIROCIN 2% OINT 22 GM TUBE NS SCH ×2 (09:46→20:53)
[2022-09-07] MEDS: AMLODIPINE 5 MG TABLET PO SCH (09:47)
[2022-09-07] MEDS: NEPRO (VANILLA) 237 ML CAN PO SCH (09:47)
[2022-09-07] MEDS: levETIRAcetam 500 MG TABLET PO SCH ×2 (09:47→20:53)
[2022-09-07 12:01] VITALS: BP 150/105; TEMP 97.1; O2SAT 97
[2022-09-07 14:40] VITALS: O2SAT 97
[2022-09-07 16:00] VITALS: BP 147/95; TEMP 98.5; O2SAT 97
[2022-09-07] MEDS: INSULIN REGULAR, HUMAN 300 UNIT/3 ML VIAL SQ PRN (17:37)
[2022-09-07 20:00] VITALS: BP 150/101; TEMP 98.6; O2SAT 95
[2022-09-07] MEDS: hydrALAZINE HCL 25 MG TABLET PO PRN (20:28)
[2022-09-08 04:00] VITALS: BP 153/100; TEMP 98.3; O2SAT 97
[2022-09-08] MEDS: hydrALAZINE HCL 25 MG TABLET PO PRN (05:07)
[2022-09-08] MEDS: LEVOTHYROXINE SODIUM 25 MCG TABLET PO SCH (06:17)
[2022-09-08] MEDS: BLOOD SUGAR DIAGNOSTIC 1 EACH STRIP VI SCH ×2 (06:17→10:48)
[2022-09-08 07:33] LABS: HEMATOCRIT 25.7 % (36.7-47.1); MEAN CORPUSCULAR HEMOGLOBIN 28.3 uug (23.8-33.4); MEAN CORPUSCULAR VOLUME 84.9 fL (73.0-96.2); PLATELET COUNT (AUTO) 232 K/uL (152-348)
[2022-09-08 07:43] LABS: CREATININE 5.1 mg/dL (0.6-1.3); MAGNESIUM 1.7 mg/dL (1.8-2.4); POTASSIUM 6.1 mmol/L (3.5-5.1)
[2022-09-08] MEDS: levETIRAcetam 500 MG TABLET PO SCH (08:05)
[2022-09-08] MEDS: AMLODIPINE 5 MG TABLET PO SCH (08:06)
[2022-09-08] MEDS: NEPRO (VANILLA) 237 ML CAN PO SCH (08:06)
[2022-09-08] MEDS: CALCIUM ACETATE 667 MG CAP/TAB PO SCH ×2 (08:06→11:41)
[2022-09-08] MEDS: CLONAZEPAM 0.5 MG TABLET PO SCH ×2 (08:06→12:34)
[2022-09-08] MEDS ORDERED: SODIUM POLYSTYRENE SULFONATE 15 G/60 ML LIQUID UDC PO ONE (09:30)
[2022-09-08] MEDS: MUPIROCIN 2% OINT 22 GM TUBE NS SCH (10:10)
[2022-09-08] MEDS: HYDROCODONE/APAP 5-325MG TABLET PO PRN (10:53)
[2022-09-08 11:18] VITALS: BP 165/104; TEMP 97.6; O2SAT 96
--- NOTE | 2022-09-08 14:00 | NUR ---
went to do the wound picture pt refused to do the wound picture mother was at bed side charge nurse and md made aware pt was getting upset
--- NOTE | 2022-09-08 14:35 | NUR ---
dc orders received noted and carried out rn report given to the prison rn dc midline per md orders, pt left the facility via ambulances in stable condition
== END 2022-09-08 14:45 | DRG 425 ==
LOC: ER 02:12 → MEDSURG3 05:50 → TELE3 12:00 → MEDSURG3 09-01 08:43
PROVIDERS: ADMIT Nurse Practitioner Family; ATTEND Nurse Practitioner Acute Care
PROC: B546ZZA Ultrasonography of Right Subclavian Vein, Guidance (ICD-10-PCS; principal; 2022-08-31)
PROC: 0HQLXZZ Repair Left Lower Leg Skin, External Approach (ICD-10-PCS; principal; 2022-08-31)
PROC: 05H533Z Insertion of Infusion Device into Right Subclavian Vein, Percutaneous Approach (ICD-10-PCS; principal; 2022-08-31)
PROC: 0JBP0ZZ Excision of Left Lower Leg Subcutaneous Tissue and Fascia, Open Approach (ICD-10-PCS; principal; 2022-08-31)
PROC: 5A1D70Z Performance of Urinary Filtration, Intermittent, Less than 6 Hours Per Day (ICD-10-PCS; principal; 2022-08-31)
PROC: 30233N1 Transfusion of Nonautologous Red Blood Cells into Peripheral Vein, Percutaneous Approach (ICD-10-PCS; 2022-09-01)
DX: E87.70 Fluid overload, unspecified (principal); D69.6 Thrombocytopenia, unspecified; I12.0 Hypertensive chronic kidney disease with stage 5 chronic kidney disease or end stage renal disease; E44.0 Moderate protein-calorie malnutrition; D63.1 Anemia in chronic kidney disease; E88.09 Other disorders of plasma-protein metabolism, not elsewhere classified; J81.1 Chronic pulmonary edema; N18.6 End stage renal disease; E11.22 Type 2 diabetes mellitus with diabetic chronic kidney disease; D61.818 Other pancytopenia; S81.812A Laceration without foreign body, left lower leg, initial encounter; Z99.2 Dependence on renal dialysis; W22.8XXA Striking against or struck by other objects, initial encounter; Y92.129 Unspecified place in nursing home as the place of occurrence of the external cause; E11.621 Type 2 diabetes mellitus with foot ulcer; E11.622 Type 2 diabetes mellitus with other skin ulcer; G40.909 Epilepsy, unspecified, not intractable, without status epilepticus; D73.1 Hypersplenism; E03.9 Hypothyroidism, unspecified; E87.5 Hyperkalemia; F17.210 Nicotine dependence, cigarettes, uncomplicated; Z79.4 Long term (current) use of insulin; F20.9 Schizophrenia, unspecified; F31.9 Bipolar disorder, unspecified; K74.60 Unspecified cirrhosis of liver; Z20.822 Contact with and (suspected) exposure to COVID-19; L97.828 Non-pressure chronic ulcer of other part of left lower leg with other specified severity; N25.0 Renal osteodystrophy; R16.2 Hepatomegaly with splenomegaly, not elsewhere classified; S71.102A Unspecified open wound, left thigh, initial encounter; S71.101A Unspecified open wound, right thigh, initial encounter; X58.XXXA Exposure to other specified factors, initial encounter; Y93.9 Activity, unspecified; Y92.89 Other specified places as the place of occurrence of the external cause; L97.519 Non-pressure chronic ulcer of other part of right foot with unspecified severity; Z68.22 Body mass index [BMI] 22.0-22.9, adult
CPT/HCPCS: 36415; 70030-TC; 71045; 82746; 82747; 82784; 83550; 83615; 83735; 84100; 84155; 84165; 84443; 85014; 85025; 85049; 86038; 86140; 86334; 86430; 86706; 86803; 86850; 86900; 86901; 86920; 87340; 87806; 90937; 93005; A6213; G0378; J0885; J1815; J2270; J7040; P9016